=== PATIENT | female | born 1960 | race Caucasian/White ===

== ENCOUNTER 2016-04-28 16:47 | Emergency (ER) | payer OTHER ==
[~2016-04-28] VITALS: Ht 162.6 cm; Wt 73.0 kg
[~2016-04-28 16:47] MED LIST: ACET-1256 PO; ALBUAER19 INH; AMLO-110 PO; CLR10 PO; CYAN100048 PO; ERGO1CAP35 PO; ETAN50IN2 IM; PANT40TA PO; POTA20TA16 PO
[2016-04-28 17:00] VITALS: TEMP 37.1; Ht 162.6 cm; Wt 73.0 kg
[2016-04-28] MEDS ORDERED: VNTHFA/IN INH (17:55)
[2016-04-28] MEDS ORDERED: ERGO500037 PO (17:57)
[2016-04-28] MEDS ORDERED: ETAN25IN2 IM (17:58)
[2016-04-28 18:03] LABS: URINE APPEARANCE CLEAR (CLEAR); URINE BILIRUBIN NEG (NEG); URINE COLOR YELLOW; URINE NITRITE NEG (NEG); URINE SPECIFIC GRAVITY 1.016 (1.000-1.030); UROBILINOGEN NEG (NEG)
[2016-04-28 18:03] LABS: BASO % 0.7 %; BASO ABS # 0.05 K/uL (0-0.2); COMPLETE YES; EOS % 0.9 %; HEMATOCRIT 41.9 % (37-47); IG% 0.3 %; LYMPH % 38.8 %; LYMPH ABS # 2.87 K/uL (1.2-3.4); MEAN CELL VOLUME 82.3 fL (80-100); MEAN CORPUSCULAR HEMOGLOBIN 27.7 pg (25-34); MEAN CORPUSCULAR HGB CONC 33.7 g/dl (32-36); MEAN PLATELET VOLUME 11.4 fL (7.4-10.4); MONO % 4.6 %; NEUT % 54.7 %; PLATELET COUNT 276 K/uL (130-400); RED BLOOD COUNT 5.09 M/uL (4.2-5.4); WHITE BLOOD COUNT 7.39 K/uL (4.8-10.8)
[2016-04-28 18:07] LABS: MANUAL MICROSCOPIC REQUIRED? NO; REVIEW REQ? NO
--- NOTE | 2016-04-28 18:15 | DIAGNOSTIC IMAGING REPORT ---
SINGLE VIEW CHEST CLINICAL HISTORY: Fever. Sepsis. FINDINGS: An AP, portable, upright chest radiograph is compared to study dated 01/07/2016 and correlated with chest CT dated 09/13/2015. The examination is degraded by portable technique, apical lordotic positioning, and patient rotation. The heart is mildly enlarged. The pulmonary vasculature is noncongested. A hiatal hernia is observed. Nonspecific interstitial thickening similar to previous. The lungs and pleural spaces are clear. No pneumothorax is seen. The skeletal structures are osteopenic. Degenerative changes noted throughout the thoracic spine. Calcific tendinopathy is seen in the right shoulder. Cholecystectomy clips are identified in the right upper quadrant. IMPRESSION: Cardiomegaly with no acute cardiopulmonary abnormality. Electronically signed by: Pablo Hamilton M.D. 04/28/2016 6:14 PM Dictated Date/Time: 04/28/2016 6:12 PM
[2016-04-28 18:16] LABS: PROTHROMBIN TIME (PATIENT) 10.7 SECONDS (9.0-12.0)
[2016-04-28 18:21] LABS: ALT/SGPT 18 U/L (12-78); BLOOD UREA NITROGEN 14 mg/dl (7-18); BUN/CREATININE RATIO 21.5 (10-20); CALCIUM 9.7 mg/dl (8.5-10.1); CARBON DIOXIDE 28 mmol/L (21-32); CHLORIDE 108 mmol/L (98-107); CREATININE 0.66 mg/dl (0.60-1.20); GLUCOSE 111 mg/dl (70-99); POTASSIUM 3.7 mmol/L (3.5-5.1); SODIUM 143 mmol/L (136-145)
[2016-04-28 18:26] LABS: ALKALINE PHOSPHATASE 73 U/L (45-117); AST/SGOT 13 U/L (15-37); CKMB/CK RATIO 1.4 (0-3.0)
[2016-04-28 18:57] VITALS: PULSE 69
--- NOTE | 2016-04-28 19:07 | EMERGENCY ROOM VISIT NOTE ---
History Report prepared by Micaela: Kade Benavidez Under the Supervision of: Dr. Jus Davis D.O. First contact with patient: 17:21 Chief Complaint: CHEST PAIN Stated Complaint: CHEST AND BACK PAIN Nursing Triage Summary: Pt c/o pain under right breast that radiates to back Pain started at 0900 +SOB Pt c/o chills History of Present Illness The patient is a 56 year old female who presents to the Emergency Room with complaints of persistent chest pain beginning about 8 hours ago. She locates her pain under her right breast, describes it as a dull pain, and reports it radiates into her back. She notes her pain began while she was sitting this morning. The patient states that movement worsens her pain, and being still and resting helps relieve her symptoms. She admits to having some nausea, chills, and a cough though she has asthma. She denies having shortness of breath. The patient reports having a history of GERD and rheumatoid arthritis. Source of History: patient Onset: about 8 hours ago Position: chest (right) Quality: dull Timing: other (persistent) Modifying Factors (Worsening): movement Modifying Factors (Relieving): rest Associated Symptoms: + chills, + cough, + nausea, No SOB Review of Systems See HPI for pertinent positives & negatives. A total of 10 systems reviewed and were otherwise negative. Past Medical & Surgical Medical Problems: (1) Cholecystectomy (2) Gastroesophageal reflux disease (3) History of asthma (4) Rheumatoid arteritis Family History Hypertension Social History Smoking Status: Never Smoker Alcohol Use: none Drug Use: none Marital Status: single Housing Status: lives alone Current/Historical Medications Scheduled Amlodipine (Norvasc), 5 MG PO AM Cyanocobalamin (Vitamin B-12), 1,000 MCG PO QAM Ergocalciferol (Vitamin D 94911 Unit), 50,000 UNIT PO WK Etanercept (Enbrel), 50 MG IM WK Loratadine (Claritin), 10 MG PO QAM Pantoprazole (Protonix), 40 MG PO QAM Potassium Ext Rel (Klor-Con), 20 MEQ PO QPM Scheduled PRN Acetaminophen (Tylenol), 500 MG PO Q6H PRN for Pain or Fever Albuterol Hfa (Ventolin Hfa), 2 PUFFS INH Q4-6H PRN for Shortness of Breath Allergies Coded Allergies: Doxycycline (Unverified Adverse Reaction, Severe, VOMITING, 04/28/16) Physical Exam Vital Signs Date Time Temp Pulse Resp B/P Pulse Ox O2 Delivery O2 Flow Rate FiO2 04/28/16 18:57 69 18 153/97 Room Air 04/28/16 17:43 Room Air 04/28/16 17:42 71 04/28/16 17:00 37.1 86 18 188/88 98 Physical Exam CONSTITUTIONAL/VITAL SIGNS: Reviewed / noted above. GENERAL: Non-toxic in appearance. INTEGUMENTARY: Warm, dry, and [place]. HEAD: Normocephalic. EYES: without scleral icterus or trauma. ENT/OROPHARYNX: clear and moist. LYMPHADENOPATHY/NECK: Is supple without lymphadenopathy or meningismus. RESPIRATORY: Lungs clear and equal. CARDIOVASCULAR: Regular rate and rhythm. GI/ABDOMEN: Soft and nontender. No organomegaly or pulsatile mass. No rebound or guarding. Normal bowel sounds. EXTREMITIES: Warm and well perfused. BACK: No CVA tenderness. NEUROLOGICAL: Intact without focal deficits. PSYCHIATRIC: normal affect. MUSCULOSKELETAL: Normally developed with good muscle tone. Medical Decision & Procedures ER Provider Diagnostic Interpretation: Radiology results as stated below per my review and radiologist interpretation: SINGLE VIEW CHEST FINDINGS: An AP, portable, upright chest radiograph is compared to study dated 01/07/2016 and correlated with chest CT dated 09/13/2015. The examination is degraded by portable technique, apical lordotic positioning, and patient rotation. The heart is mildly enlarged. The pulmonary vasculature is noncongested. A hiatal hernia is observed. Nonspecific interstitial thickening similar to previous. The lungs and pleural spaces are clear. No pneumothorax is seen. The skeletal structures are osteopenic. Degenerative changes noted throughout the thoracic spine. Calcific tendinopathy is seen in the right shoulder. Cholecystectomy clips are identified in the right upper quadrant. IMPRESSION: Cardiomegaly with no acute cardiopulmonary abnormality. Electronically signed by: Pablo Hamilton M.D. 04/28/2016 6:14 PM Dictated Date/Time: 04/28/2016 6:12 PM Laboratory Results 04/28/16 17:30 Red Blood Count 5.09, Mean Corpuscular Volume 82.3, Mean Corpuscular Hemoglobin 27.7, Mean Corpuscular Hemoglobin Concent 33.7, Mean Platelet Volume 11.4, Neutrophils (%) (Auto) 54.7, Lymphocytes (%) (Auto) 38.8, Monocytes (%) (Auto) 4.6, Eosinophils (%) (Auto) 0.9, Basophils (%) (Auto) 0.7, Neutrophils # (Auto) 4.04, Lymphocytes # (Auto) 2.87, Monocytes # (Auto) 0.34, Eosinophils # (Auto) 0.07, Basophils # (Auto) 0.05 04/28/16 17:30 Test 04/28/16 17:30 04/28/16 17:45 White Blood Count 7.39 K/uL (4.8-10.8) Red Blood Count 5.09 M/uL (4.2-5.4) Hemoglobin 14.1 g/dL (12.0-16.0) Hematocrit 41.9 % (37-47) Mean Corpuscular Volume 82.3 fL (80-100) Mean Corpuscular Hemoglobin 27.7 pg (25-34) Mean Corpuscular Hemoglobin Concent 33.7 g/dl (32-36) Platelet Count 276 K/uL (130-400) Mean Platelet Volume 11.4 fL (7.4-10.4) Neutrophils (%) (Auto) 54.7 % Lymphocytes (%) (Auto) 38.8 % Monocytes (%) (Auto) 4.6 % Eosinophils (%) (Auto) 0.9 % Basophils (%) (Auto) 0.7 % Neutrophils # (Auto) 4.04 K/uL (1.4-6.5) Lymphocytes # (Auto) 2.87 K/uL (1.2-3.4) Monocytes # (Auto) 0.34 K/uL (0.11-0.59) Eosinophils # (Auto) 0.07 K/uL (0-0.5) Basophils # (Auto) 0.05 K/uL (0-0.2) RDW Standard Deviation 41.5 fL (36.4-46.3) RDW Coefficient of Variation 13.7 % (11.5-14.5) Immature Granulocyte % (Auto) 0.3 % Immature Granulocyte # (Auto) 0.02 K/uL (0.00-0.02) Prothrombin Time 10.7 SECONDS (9.0-12.0) Prothromb Time International Ratio 1.0 (0.9-1.1) Activated Partial Thromboplast Time 25.9 SECONDS (21.0-31.0) Partial Thromboplastin Ratio 1.0 D-Dimer 210 ug/L FEU (0-500) Anion Gap 7.0 mmol/L (3-11) Est Creatinine Clear Calc Drug Dose 91.0 ml/min Estimated GFR () 112.9 Estimated GFR (Non- 97.4 BUN/Creatinine Ratio 21.5 (10-20) Calcium Level 9.7 mg/dl (8.5-10.1) Total Bilirubin 0.5 mg/dl (0.2-1) Direct Bilirubin 0.1 mg/dl (0-0.2) Aspartate Amino Transf (AST/SGOT) 13 U/L (15-37) Alanine Aminotransferase (ALT/SGPT) 18 U/L (12-78) Alkaline Phosphatase 73 U/L (45-117) Total Creatine Kinase 106 U/L (26-192) Creatine Kinase MB 1.5 ng/ml (0.5-3.6) Creatine Kinase MB Ratio 1.4 (0-3.0) Troponin I < 0.015 ng/ml (0-0.045) Total Protein 8.0 gm/dl (6.4-8.2) Albumin 4.4 gm/dl (3.4-5.0) Lipase 138 U/L (73-393) Urine Color YELLOW Urine Appearance CLEAR (CLEAR) Urine pH 7.0 (4.5-7.5) Urine Specific [place] 1.016 (1.000-1.030) Urine Protein NEG (NEG) Urine Glucose (UA) NEG (NEG) Urine Ketones NEG (NEG) Urine Occult Blood NEG (NEG) Urine Nitrite NEG (NEG) Urine Bilirubin NEG (NEG) Urine Urobilinogen NEG (NEG) Urine Leukocyte Esterase NEG (NEG) Laboratory results as stated above per my review. ECG Indication: chest pain Rate (beats per minute): 75 Rhythm: normal sinus Findings: no acute ischemic change, no ectopy ED Course 1720: Previous medical records were reviewed. The patient was evaluated in room A3. A complete history and physical examination was performed. 0: On reevaluation, the patient is doing well. I discussed the results and findings with the patient. She verbalized agreement of the treatment plan. The patient was discharged home. Medical Decision the differential was considered includes acute myocardial infarction, acute coronary syndrome, myocarditis, pericarditis, pericardial effusions /tamponade, esophageal perforation, thoracic aortic dissection, pulmonary embolism, pneumonia, pneumothorax, pancreatitis, shingles, acute cholecystitis, perforated abdominal viscus. This is a 56-year-old female who presents to the ED with a chief complaint of a dull right-sided chest pain that started around 9 AM today. Dates that she has had a slight cough recently and movement makes her pain worse. She denies any shortness of breath, fevers, lightheadedness, dizziness or palpitations. She denies any radiation of her pain. Her initial blood pressure was 188/88. Normal exam. EKG shows a normal sinus rhythm at a rate of 75. Chest x-ray was negative for acute disease. CBC is normal. D-dimer is negative. Complete metabolic panel was normal. Troponin is negative. Urine did not show infection. The patient was told the results. She is felt to be stable for discharge. Impression Primary Impression: Right-sided chest pain Scribe Attestation The scribe's documentation has been prepared under my direction and personally reviewed by me in its entirety. I confirm that the note above accurately reflects all work, treatment, procedures, and medical decision making performed by me. Departure Information Dispostion Home / Self-Care Referrals No Doctor, Assigned (PCP) Patient Instructions Chest Pain - [facility], [facility] Additional Instructions Follow-up with your doctor for further care and evaluation in 1-2 days. Return to the emergency department for worsening or new symptoms or any concerns. You have been examined and treated today on an emergency basis only. This is not a substitute for, or an effort to provide, complete comprehensive medical care. It is impossible to recognize and treat all injuries or illnesses in a single emergency department visit. It is therefore important that you follow up closely with your doctor. Call as soon as possible for an appointment.
[2016-04-28 19:55] VITALS: BP 143/88; O2SAT 97
== END 2016-04-28 19:55 | disposition home or self-care (01) ==
LOC: C.EDB 16:48 → C.EDA 19:55
DX: R07.9 Chest pain, unspecified (principal); Z90.49 Acquired absence of other specified parts of digestive tract; K21.9 Gastro-esophageal reflux disease without esophagitis

== ENCOUNTER → 2016-06-13 | Outpatient (CLI) | payer OTHER ==
[~2016-06-13] MED LIST changes: -ALBUAER19 INH; +AMLO10TA2 PO; +CETI10TA84 PO; -ERGO1CAP35 PO; +ERGO500037 PO; +ETAN25IN2 IM; -ETAN50IN2 IM; +FAMO20TA11 PO; +NRV/5 PO; +VNTHFA/IN INH
== END | disposition home or self-care (01) ==
LOC: C.PAPS 08:57
PROVIDERS: ATTEND Physician Assistant
DX: Z12.4 Encounter for screening for malignant neoplasm of cervix (principal)

== ENCOUNTER → 2016-06-28 | Outpatient (CLI) | payer OTHER ==
[2016-06-28 17:29] LABS: HEMATOCRIT 40.8 % (37-47); MEAN CELL VOLUME 85.2 fL (80-100); MEAN CORPUSCULAR HEMOGLOBIN 26.9 pg (25-34); MEAN CORPUSCULAR HGB CONC 31.6 g/dl (32-36); MEAN PLATELET VOLUME 11.9 fL (7.4-10.4); PLATELET COUNT 250 K/uL (130-400); RED BLOOD COUNT 4.79 M/uL (4.2-5.4); WHITE BLOOD COUNT 6.64 K/uL (4.8-10.8)
[2016-06-28 17:51] LABS: BASO % 0.8 %; BASO ABS # 0.05 K/uL (0-0.2); COMPLETE YES; EOS % 3.3 %; IG% 0.3 %; LYMPH % 56.2 %; LYMPH ABS # 3.73 K/uL (1.2-3.4); MONO % 6.9 %; NEUT % 32.5 %
[2016-06-28 17:57] LABS: BLOOD UREA NITROGEN 19 mg/dl (7-18); BUN/CREATININE RATIO 25.1 (10-20); CALCIUM 9.2 mg/dl (8.5-10.1); CARBON DIOXIDE 29 mmol/L (21-32); CHLORIDE 109 mmol/L (98-107); CREATININE 0.77 mg/dl (0.60-1.20); GLUCOSE 98 mg/dl (70-99); POTASSIUM 3.6 mmol/L (3.5-5.1); SODIUM 145 mmol/L (136-145)
[2016-06-28 19:29] LABS: LYME DISEASE AB IGG NEG (NEG); LYME DISEASE AB IGM NEG (NEG)
[2016-06-30 16:42] LABS: EBV EARLY ANTIGEN AB <0.91 INDEX; EPSTEIN BARR VIR CAPSID IGG 4.96 INDEX
== END | disposition home or self-care (01) ==
LOC: C.LABPBG 15:36
PROVIDERS: ATTEND Physician Assistant
DX: R53.83 Other fatigue (principal); R42 Dizziness and giddiness; S40.269A Insect bite (nonvenomous) of unspecified shoulder, initial encounter; W57.XXXA Bitten or stung by nonvenomous insect and other nonvenomous arthropods, initial encounter

== ENCOUNTER 2016-07-09 19:45 | Emergency (ER) | payer OTHER ==
[~2016-07-09] VITALS: Ht 162.6 cm; Wt 72.6 kg
[~2016-07-09 19:45] MED LIST changes: -AMLO10TA2 PO; -CETI10TA84 PO; -FAMO20TA11 PO; -NRV/5 PO
[2016-07-09 19:49] VITALS: TEMP 37.2; Ht 162.6 cm; Wt 72.6 kg
[2016-07-09] MEDS ORDERED: SODIUM CHLORIDE 0.9% 1000ML 1,000 ML IV STA ×2 (19:55→20:00)
[2016-07-09] MEDS ORDERED: ONDANSETRON 8 MG/54 ML D5W IV STA (19:59)
[2016-07-09] MEDS ORDERED: AMLO10TA2 PO (20:25)
[2016-07-09] MEDS ORDERED: CETI10TA84 PO (20:27)
[2016-07-09 20:38] LABS: BASO % 0.5 %; BASO ABS # 0.03 K/uL (0-0.2); COMPLETE YES; EOS % 3.1 %; HEMATOCRIT 38.6 % (37-47); LYMPH ABS # 2.83 K/uL (1.2-3.4); MEAN CELL VOLUME 84.5 fL (80-100); MEAN CORPUSCULAR HGB CONC 33.2 g/dl (32-36); MONO % 9.2 %; NEUT % 38.2 %; PLATELET COUNT 226 K/uL (130-400); RED BLOOD COUNT 4.57 M/uL (4.2-5.4); WHITE BLOOD COUNT 5.77 K/uL (4.8-10.8)
[2016-07-09 21:01] LABS: ALKALINE PHOSPHATASE 69 U/L (45-117); ALT/SGPT 22 U/L (12-78); BLOOD UREA NITROGEN 13 mg/dl (7-18); BUN/CREATININE RATIO 20.2 (10-20); CARBON DIOXIDE 25 mmol/L (21-32); CHLORIDE 111 mmol/L (98-107); CREATININE 0.66 mg/dl (0.60-1.20); GLUCOSE 96 mg/dl (70-99); SODIUM 149 mmol/L (136-145)
[2016-07-09 21:31] LABS: POTASSIUM 3.1 mmol/L (3.5-5.1)
[2016-07-09 21:36] LABS: URINE APPEARANCE CLEAR (CLEAR); URINE BILIRUBIN NEG (NEG); URINE COLOR YELLOW; URINE EPITHELIAL CELL AUTO 0-5 /lpf (0-5); URINE NITRITE NEG (NEG); URINE PH 6.5 (4.5-7.5); URINE SPECIFIC GRAVITY 1.011 (1.000-1.030); UROBILINOGEN NEG (NEG); ZZUR CULT IF INDIC CLEAN CATCH NO
[2016-07-09 21:36] LABS: MAGNESIUM 1.9 mg/dl (1.8-2.4)
[2016-07-09 21:38] LABS: MANUAL MICROSCOPIC REQUIRED? NO; REVIEW REQ? NO
[2016-07-09] MEDS ORDERED: OPTIRAY 320 IV PRN (22:00)
--- NOTE | 2016-07-09 22:10 | DIAGNOSTIC IMAGING REPORT ---
CT SCAN OF THE ABDOMEN AND PELVIS WITH IV CONTRAST CLINICAL HISTORY: Generalized abdominal pain. Diarrhea. COMPARISON STUDY: Abdominal CT dated 10/29/2015. TECHNIQUE: Following the IV administration of 115 cc of Optiray 320, CT scan of the abdomen and pelvis is performed from the lung bases to the proximal femora. Images are reviewed in the axial, sagittal, and coronal planes. IV contrast was administered without complication. Automated dose control exposure was utilized. CT DOSE: 357.14 mGy.cm FINDINGS: Lung bases: The heart is top normal in size and without pericardial effusion. The lung bases are clear noting dependent atelectasis. Liver: The contrast-enhanced liver is normal in size, contour, and attenuation. There is minimal central intrahepatic biliary ductal dilatation. The hepatic veins and portal veins are patent. A portovenous shunt is incidentally noted in the subcapsular aspect of segment VIII on image #43. Gallbladder: Surgically absent noting clips in the gallbladder fossa. Spleen: Normal in size and attenuation. 11 mm low-attenuation lesion in the spleen seen on image #87 is unchanged and of doubtful significance Pancreas: Unremarkable. Adrenal glands: Unremarkable. Kidneys: The contrast enhanced kidneys are normal in size and without hydronephrosis. The kidneys enhance symmetrically. A small nonobstructing left calculus is noted. Abdominal vasculature: The abdominal aorta is normal in course and caliber noting mild to moderate atherosclerotic calcification. Stomach and bowel: There is a moderate to large hiatal hernia, with over half the stomach located in the thoracic cavity. The duodenum is normal in configuration. No bowel obstruction is seen. There are scattered colonic diverticula without CT evidence of acute diverticulitis. The appendix is well-visualized and normal. Peritoneum: There is no intraperitoneal free air or abdominal ascites. There is a tiny fat-containing umbilical hernia. Lymphadenopathy: None. Pelvic viscera: The bladder, uterus, and adnexa are normal as visualized. Skeletal structures: The skeletal structures are osteopenic. There is a left-sided pars defect at L5. Mild lumbar sacral spondylosis is observed. No lytic or blastic lesions are seen. IMPRESSION: 1. There are no acute infectious or inflammatory findings in the abdomen or pelvis. 2. Moderate to large hiatal hernia. 3. Tiny nonobstructing left renal calculus. 4. Additional findings as above. Electronically signed by: Pablo Hamilton M.D. 07/09/2016 10:08 PM Dictated Date/Time: 07/09/2016 10:00 PM
[2016-07-09 22:14] LABS: CALCIUM 9.5 mg/dl (8.5-10.1)
[2016-07-09] MEDS ORDERED: POTASSIUM CHLORIDE 10 MEQ TABCR PO STA (22:40)
[2016-07-09] MEDS ORDERED: ONDANSETRON HOME PACK 4MG OD TAB PO ONE (22:45)
[2016-07-09 23:09] VITALS: BP 147/82; PULSE 68; O2SAT 97
--- NOTE | 2016-07-10 01:33 | EMERGENCY ROOM VISIT NOTE ---
History Report prepared by Micaela: Tania Squires Under the Supervision of: Dr. Sebas Sanz M.D. First contact with patient: 19:52 Chief Complaint: ABDOMINAL PAIN Stated Complaint: STOMACH PAIN DIARRHEA History of Present Illness The patient is a 56 year old female who presents to the Emergency Room with complaints of worsening lower abdominal pain for the past 2 days. The patient has not been feeling well for the past couple of weeks. Last week she saw her PCP and was placed on amoxicillin for a sinus infection. Her PCP called her the next day and told her that she had mono. The patient states that she was feeling better for a few days after starting the antibiotics. Two days ago she developed diarrhea and abdominal pain. Her stool is watery and she reports some blood-streaked mucus after multiple episodes of diarrhea. She has been feeling weak and nauseated. She rates her pain as a 4/10 in severity. Pt denies LOC, fevers, chills, diaphoresis, visual changes, neck pain, chest pain, breathing difficulties, vomiting, back pain, melena, urinary symptoms, numbness, lymphadenopathy, rash, or other complaints. Source of History: patient Onset: 2 days ago Position: abdomen (lower) Symptom Intensity: 4/10 Timing: worsening Associated Symptoms: + nausea, + weakness Review of Systems See HPI for pertinent positives and negatives. A total of ten systems were reviewed and were otherwise negative. Past Medical & Surgical Medical Problems: (1) Cholecystectomy (2) Gastroesophageal reflux disease (3) History of asthma (4) Rheumatoid arteritis Family History Hypertension Social History Smoking Status: Never Smoker Alcohol Use: none Drug Use: none Marital Status: single Housing Status: lives alone Current/Historical Medications Scheduled Amlodipine Besylate (Norvasc), 10 MG PO DAILY Cetirizine (Zyrtec), 10 MG PO DAILY Cyanocobalamin (Vitamin B-12), 1,000 MCG PO QAM Ergocalciferol (Vitamin D 05884 Unit), 50,000 UNIT PO WK Etanercept (Enbrel), 50 MG IM WK Pantoprazole (Protonix), 40 MG PO QAM Potassium Ext Rel (Klor-Con), 20 MEQ PO QPM Scheduled PRN Acetaminophen (Tylenol), 500 MG PO Q6H PRN for Pain or Fever Albuterol Hfa (Ventolin Hfa), 2 PUFFS INH Q4-6H PRN for Shortness of Breath Allergies Coded Allergies: Doxycycline (Unverified Adverse Reaction, Severe, VOMITING, 04/28/16) Physical Exam Vital Signs Date Time Temp Pulse Resp B/P (MAP) Pulse Ox O2 Delivery O2 Flow Rate FiO2 07/09/16 23:09 68 18 147/82 97 07/09/16 22:04 74 18 133/77 98 Room Air 07/09/16 20:39 61 07/09/16 19:49 37.2 79 18 164/93 99 Room Air Physical Exam GENERAL: Awake, alert, uncomfortable-appearing, in no distress HENT: Normocephalic, atraumatic. Oropharynx unremarkable. EYES: Normal conjunctiva. Sclera non-icteric. NECK: Supple. No nuchal rigidity. FROM. No JVD. RESPIRATORY: Clear to auscultation. CARDIAC: Regular rate, normal rhythm. Extremities warm and well perfused. Pulses equal. ABDOMEN: Soft, non-distended. Mild diffuse abdominal pain. No rebound or guarding. No masses. RECTAL: Deferred. MUSCULOSKELETAL: Chest examination reveals no tenderness. The back is symmetrical on inspection without obvious abnormality. There is no CVA tenderness to palpation. No joint edema. LOWER EXTREMITIES: Calves are equal size bilaterally and non-tender. No edema. No discoloration. NEURO: Normal sensorium. No sensory or motor deficits noted. SKIN: No rash or jaundice noted. Medical Decision & Procedures ER Provider Diagnostic Interpretation: Radiology results as stated below per my review and radiologist interpretation: CT SCAN OF THE ABDOMEN AND PELVIS WITH IV CONTRAST CLINICAL HISTORY: Generalized abdominal pain. Diarrhea. COMPARISON STUDY: Abdominal CT dated 10/29/2015. TECHNIQUE: Following the IV administration of 115 cc of Optiray 320, CT scan of the abdomen and pelvis is performed from the lung bases to the proximal femora. Images are reviewed in the axial, sagittal, and coronal planes. IV contrast was administered without complication. Automated dose control exposure was utilized. CT DOSE: 357.14 mGy.cm FINDINGS: Lung bases: The heart is top normal in size and without pericardial effusion. The lung bases are clear noting dependent atelectasis. Liver: The contrast-enhanced liver is normal in size, contour, and attenuation. There is minimal central intrahepatic biliary ductal dilatation. The hepatic veins and portal veins are patent. A portovenous shunt is incidentally noted in the subcapsular aspect of segment VIII on image #43. Gallbladder: Surgically absent noting clips in the gallbladder fossa. Spleen: Normal in size and attenuation. 11 mm low-attenuation lesion in the spleen seen on image #87 is unchanged and of doubtful significance Pancreas: Unremarkable. Adrenal glands: Unremarkable. Kidneys: The contrast enhanced kidneys are normal in size and without hydronephrosis. The kidneys enhance symmetrically. A small nonobstructing left calculus is noted. Abdominal vasculature: The abdominal aorta is normal in course and caliber noting mild to moderate atherosclerotic calcification. Stomach and bowel: There is a moderate to large hiatal hernia, with over half the stomach located in the thoracic cavity. The duodenum is normal in configuration. No bowel obstruction is seen. There are scattered colonic diverticula without CT evidence of acute diverticulitis. The appendix is well-visualized and normal. Peritoneum: There is no intraperitoneal free air or abdominal ascites. There is a tiny fat-containing umbilical hernia. Lymphadenopathy: None. Pelvic viscera: The bladder, uterus, and adnexa are normal as visualized. Skeletal structures: The skeletal structures are osteopenic. There is a left-sided pars defect at L5. Mild lumbar sacral spondylosis is observed. No lytic or blastic lesions are seen. IMPRESSION: 1. There are no acute infectious or inflammatory findings in the abdomen or pelvis. 2. Moderate to large hiatal hernia. 3. Tiny nonobstructing left renal calculus. 4. Additional findings as above. Electronically signed by: Pablo Hamilton M.D. 07/09/2016 10:08 PM Dictated Date/Time: 07/09/2016 10:00 PM Laboratory Results 07/09/16 20:18 Red Blood Count 4.57, Mean Corpuscular Volume 84.5, Mean Corpuscular Hemoglobin 28.0, Mean Corpuscular Hemoglobin Concent 33.2, Mean Platelet Volume 12.0, Neutrophils (%) (Auto) 38.2, Lymphocytes (%) (Auto) 49.0, Monocytes (%) (Auto) 9.2, Eosinophils (%) (Auto) 3.1, Basophils (%) (Auto) 0.5, Neutrophils # (Auto) 2.20, Lymphocytes # (Auto) 2.83, Monocytes # (Auto) 0.53, Eosinophils # (Auto) 0.18, Basophils # (Auto) 0.03 07/09/16 20:18 07/09/16 21:10 Test 07/09/16 20:18 07/09/16 21:10 07/09/16 21:20 White Blood Count 5.77 K/uL (4.8-10.8) Red Blood Count 4.57 M/uL (4.2-5.4) Hemoglobin 12.8 g/dL (12.0-16.0) Hematocrit 38.6 % (37-47) Mean Corpuscular Volume 84.5 fL (80-100) Mean Corpuscular Hemoglobin 28.0 pg (25-34) Mean Corpuscular Hemoglobin Concent 33.2 g/dl (32-36) Platelet Count 226 K/uL (130-400) Mean Platelet Volume 12.0 fL (7.4-10.4) Neutrophils (%) (Auto) 38.2 % Lymphocytes (%) (Auto) 49.0 % Monocytes (%) (Auto) 9.2 % Eosinophils (%) (Auto) 3.1 % Basophils (%) (Auto) 0.5 % Neutrophils # (Auto) 2.20 K/uL (1.4-6.5) Lymphocytes # (Auto) 2.83 K/uL (1.2-3.4) Monocytes # (Auto) 0.53 K/uL (0.11-0.59) Eosinophils # (Auto) 0.18 K/uL (0-0.5) Basophils # (Auto) 0.03 K/uL (0-0.2) RDW Standard Deviation 42.6 fL (36.4-46.3) RDW Coefficient of Variation 13.8 % (11.5-14.5) Immature Granulocyte % (Auto) 0.0 % Immature Granulocyte # (Auto) 0.00 K/uL (0.00-0.02) Anion Gap 13.0 mmol/L (3-11) Est Creatinine Clear Calc Drug Dose 90.8 ml/min Estimated GFR () 112.9 Estimated GFR (Non- 97.4 BUN/Creatinine Ratio 20.2 (10-20) Calcium Level 9.5 mg/dl (8.5-10.1) Total Bilirubin 0.7 mg/dl (0.2-1) Alanine Aminotransferase (ALT/SGPT) 22 U/L (12-78) Alkaline Phosphatase 69 U/L (45-117) Total Protein 7.6 gm/dl (6.4-8.2) Albumin 4.1 gm/dl (3.4-5.0) Lipase 188 U/L (73-393) Magnesium Level 1.9 mg/dl (1.8-2.4) Direct Bilirubin 0.2 mg/dl (0-0.2) Aspartate Amino Transf (AST/SGOT) 16 U/L (15-37) Urine Color YELLOW Urine Appearance CLEAR (CLEAR) Urine pH 6.5 (4.5-7.5) Urine Specific [place] 1.011 (1.000-1.030) Urine Protein NEG (NEG) Urine Glucose (UA) NEG (NEG) Urine Ketones NEG (NEG) Urine Occult Blood NEG (NEG) Urine Nitrite NEG (NEG) Urine Bilirubin NEG (NEG) Urine Urobilinogen NEG (NEG) Urine Leukocyte Esterase TRACE (NEG) Urine WBC (Auto) 1-5 /hpf (0-5) Urine RBC (Auto) 0-4 /hpf (0-4) Urine Hyaline Casts (Auto) 0 /lpf (0-5) Urine Epithelial Cells (Auto) 0-5 /lpf (0-5) Urine Bacteria (Auto) NEG (NEG) Laboratory results reviewed by me. Medications Administered Medications (Trade) Dose Ordered Sig/Clarice Route Start Time Stop Time Status Last Admin Dose Admin Sodium Chloride 1,000 ml @ 999 mls/hr Q1H1M STAT IV 07/09/16 19:55 07/09/16 20:55 DC 07/09/16 20:34 999 MLS/HR Ondansetron HCl (Zofran 8mg Iv) 8 mg NOW STAT IV 07/09/16 19:59 07/09/16 20:00 DC 07/09/16 20:34 8 MG Sodium Chloride 1,000 ml @ 200 mls/hr Q5H STAT IV 07/09/16 20:00 07/09/16 23:18 DC 07/09/16 20:00 200 MLS/HR Potassium Chloride (Klor-Con M10) 40 meq NOW STAT PO 07/09/16 22:40 07/09/16 22:42 DC 07/09/16 22:57 40 MEQ Ondansetron HCl (ZOFRAN ODT 4MG Home Pack) 1 homepack UD ONCE PO 07/09/16 22:45 07/09/16 22:46 DC 07/09/16 22:[address] [facility] ED Course 1951: The patient was evaluated in room C2B. A complete history and physical exam was performed. 1954: NSS 1000 ml @ 999 mls/hr IV 1958: Zofran 8 mg IV 1999: NSS 1000 ml @ 200 mls/hr IV 2236: I reassessed the patient at this time. She is feeling better and resting comfortably. I discussed the results and treatment plan with the patient. I answered all pertaining questions that she had. She expressed understanding and verbalized agreement. The patient will be discharged home. 2239: Potassium Chloride 40 meq PO 2244: Zofran 4 mg PO 1 [facility] Medical Decision Medication Reconciliation: I attest that I have personally reviewed the patient' s current medication list Blood pressure screening: Patient was found to have an elevated blood pressure and was referred to their primary doctor for recheck and further treatment. Triage Nursing notes reviewed. The patient's presentation and history were concerning for abdominal pain and diarrhea. Etiologies such as infectious diarrhea, C. difficile colitis, antibiotic intolerance, appendicitis, diverticulitis, obstruction, inflammatory bowel disease, renal colic, PUD, biliary pathology, pancreatitis, mesenteric ischemia , aortic pathology, infections, genitourinary, UTI, perforated viscus, as well as others were entertained. The patient was evaluated. She was hydrated with normal saline. She was given IV Zofran for symptoms. She declined analgesia. Blood work and imaging were ordered. The patient had unremarkable CBC and chemistry panel except for mild hypokalemia. She was given oral potassium. The patient states she does take potassium at home. CT imaging was unremarkable. The patient was unable to write a stool sample. Urinalysis was unremarkable. I suspect the patient has a diarrheal illness. She is doing quite well at this time. She was reassured and felt much better after Zofran and hydration. She will continue conservative management. A Zofran home pack was given for prescription management. She will follow-up with her primary physician for stool analysis. There is some mild risk for C. difficile however there is no colitis on CT imaging. I gave my usual and customary discussion regarding this issue. She worsens in any way she will come back. By the evaluation outlined above other emergent etiologies such as those listed in the differential, as well as others, were deemed relatively unlikely. The patient was educated about the findings as listed above. All questions were answered and the patient was pleased with the treatment. Return instructions were outlined and the patient was discharged in stable condition. The patient was referred to her PCP this week for follow-up for a recheck of the current condition. Impression Primary Impression: Diarrhea Additional Impressions: Abdominal pain Hypokalemia Scribe Attestation The scribe's documentation has been prepared under my direction and personally reviewed by me in its entirety. I confirm that the note above accurately reflects all work, treatment, procedures, and medical decision making performed by me. Departure Information Dispostion Home / Self-Care Referrals Amairani Simmons DO (PCP) Forms Call Back Authorization, HOME CARE DOCUMENTATION FORM, IMPORTANT VISIT INFORMATION Patient Instructions My [facility] Additional Instructions ABDOMINAL PAIN INSTRUCTIONS: Start a probiotic. Ibuprofen(Motrin, Advil) may be used for fever or pain. Use 600mg every six hours as needed. Take with food. Avoid using more than 2400mg in a 24 hour period. Do not use 2400mg per day for more than three consecutive days without physician direction. Prolonged inappropriate use can lead to stomach upset or ulcers. (AND/OR) Acetaminophen(Tylenol) may be used for fever or pain. Use 1000mg every six hours as needed. Avoid using more than 4000mg in a 24 hour period. Zofran 4 mg oral dissolving tablets: take one tablet and allow it to melt in your mouth every 4 hours as needed for nausea. Rest and drink plenty of fluids as tolerated. Slow sips of water or sports drinks are recommended instead of large amounts all at once. Continue current medications. Once your stomach is settled start with a clear liquid diet (jello, soup broth, etc.) and then advance as tolerated. You should avoid full, heavy meals for about 24 hrs from the time your symptoms resolved. Return to the ER immediately for worsening or persistent abdominal pain, vomiting, fevers, chest pains, difficulty breathing, black or bloody stools, worsening of your condition, or as needed. Follow up with your primary physician in 2-3 days for a recheck of your current condition and diarrhea. Problem Qualifiers Primary Impression: Diarrhea Diarrhea type: unspecified type Qualified Codes: R19.7 - Diarrhea, unspecified Additional Impressions: Abdominal pain Abdominal location: generalized Qualified Codes: R10.84 - Generalized abdominal pain
== END 2016-07-09 23:11 | disposition home or self-care (01) ==
LOC: C.EDB 19:46 → C.EDC 23:11
DX: R19.7 Diarrhea, unspecified (principal); R10.84 Generalized abdominal pain; E87.6 Hypokalemia; K21.9 Gastro-esophageal reflux disease without esophagitis; J45.909 Unspecified asthma, uncomplicated; Z82.49 Family history of ischemic heart disease and other diseases of the circulatory system; Z79.899 Other long term (current) drug therapy

== ENCOUNTER → 2016-09-27 | Outpatient (CLI) | payer OTHER ==
[~2016-09-27] MED LIST changes: -AMLO-110 PO; +AMLO10TA2 PO; +CETI10TA84 PO; -CLR10 PO; +FAMO20TA11 PO; +NRV/5 PO
[2016-09-27 17:42] LABS: BASO % 0.8 %; BASO ABS # 0.05 K/uL (0-0.2); COMPLETE YES; EOS % 3.6 %; HEMATOCRIT 37.6 % (37-47); IG% 0.3 %; LYMPH % 44.9 %; LYMPH ABS # 2.84 K/uL (1.2-3.4); MEAN CORPUSCULAR HEMOGLOBIN 27.9 pg (25-34); MEAN CORPUSCULAR HGB CONC 32.4 g/dl (32-36); MEAN PLATELET VOLUME 11.6 fL (7.4-10.4); MONO % 9.5 %; NEUT % 40.9 %; PLATELET COUNT 238 K/uL (130-400); RED BLOOD COUNT 4.37 M/uL (4.2-5.4); WHITE BLOOD COUNT 6.33 K/uL (4.8-10.8)
[2016-09-27 18:08] LABS: AST/SGOT 14 U/L (15-37); C-REACTIVE PROTEIN < 0.29 mg/dl (0-0.29)
[2016-09-27 18:18] LABS: ALT/SGPT 21 U/L (12-78); THYROID STIMULATING HORMONE 0.668 uIu/ml (0.300-4.500)
[2016-09-27 18:33] LABS: CHOLESTEROL/HDL RATIO 3.3
--- NOTE | 2016-09-27 18:59 | DIAGNOSTIC IMAGING REPORT ---
CT OF THE CHEST WITHOUT IV CONTRAST CLINICAL HISTORY: Ascending aortic dilatation. COMPARISON STUDY: Chest CT September 13, 2015. CT DOSE: 267.64 mGycm TECHNIQUE: Axial images of the chest were obtained without IV contrast. Images were reviewed in the axial, sagittal, and coronal planes. IV contrast was not administered for this examination. A dose lowering technique was utilized adhering to the principles of ALARA. FINDINGS: No enlarged axillary, mediastinal or hilar lymph nodes are present. A moderate sized hiatal hernia is unchanged. Mild cardiomegaly is unchanged. There is no pericardial effusion. Mild dilatation of the ascending aorta which measures 4 cm at the level the main pulmonary artery is unchanged and CT of September 13, 2015. There is no pneumothorax or pleural effusion. There is no consolidation to suggest pneumonia. A few left upper lobe nodules measuring up to 3 mm are unchanged since CT of April 09, 2015. These are benign given stability. Bony thorax is unremarkable. Gallbladder surgically absent. A 1 cm splenic hypodense lesion has decreased in size from earlier studies. This is benign. A 3 mm left renal calculus is present. IMPRESSION: 1. No change in mild dilatation of the ascending aorta, which measures 4 cm the level of the main pulmonary artery, since CT of September 13, 2015. 2. No acute intrathoracic findings. 3. No change in a few tiny left upper lobe nodules which are benign given stability. Electronically signed by: Arian Walters M.D. 09/27/2016 6:58 PM Dictated Date/Time: 09/27/2016 4:56 PM
== END | disposition home or self-care (01) ==
LOC: C.CTS 16:26
PROVIDERS: ATTEND Family Medicine
DX: E04.2 Nontoxic multinodular goiter (principal); I10 Essential (primary) hypertension; E55.9 Vitamin D deficiency, unspecified; M81.0 Age-related osteoporosis without current pathological fracture; E89.0 Postprocedural hypothyroidism; Z23 Encounter for immunization; Z51.81 Encounter for therapeutic drug level monitoring; M06.09 Rheumatoid arthritis without rheumatoid factor, multiple sites; I77.810 Thoracic aortic ectasia; Z79.899 Other long term (current) drug therapy

== ENCOUNTER 2016-10-04 04:43 | Emergency (ER) | payer OTHER ==
[~2016-10-04] VITALS: Ht 167.6 cm; Wt 73.4 kg
[~2016-10-04 04:43] MED LIST changes: -FAMO20TA11 PO; -NRV/5 PO
[2016-10-04 04:49] VITALS: Ht 167.6 cm; Wt 73.4 kg
[2016-10-04] MEDS ORDERED: ASPIRIN 81 MG CHEW PO STA (05:22)
[2016-10-04] MEDS ORDERED: ONDANSETRON INJ 2 MG/ML 2 ML VIAL IV STA (05:27)
[2016-10-04] MEDS ORDERED: SODIUM CHLORIDE 0.9% 250ML 250 ML IV STA (05:27)
[2016-10-04] MEDS ORDERED: SODIUM CHLORIDE 0.9% 1000ML 1,000 ML IV STA (05:27)
[2016-10-04] MEDS ORDERED: HYDROmorphone INJ 0.5 MG/0.5 ML SYR IV STA (05:27)
[2016-10-04 05:35] LABS: BASO % 0.4 %; BASO ABS # 0.03 K/uL (0-0.2); COMPLETE YES; EOS % 1.3 %; HEMATOCRIT 39.5 % (37-47); IG% 0.3 %; LYMPH % 21.7 %; LYMPH ABS # 1.69 K/uL (1.2-3.4); MEAN CELL VOLUME 84.9 fL (80-100); MEAN CORPUSCULAR HEMOGLOBIN 27.3 pg (25-34); MEAN CORPUSCULAR HGB CONC 32.2 g/dl (32-36); MEAN PLATELET VOLUME 11.3 fL (7.4-10.4); MONO % 5.1 %; NEUT % 71.2 %; PLATELET COUNT 242 K/uL (130-400); RED BLOOD COUNT 4.65 M/uL (4.2-5.4)
[2016-10-04 05:50] LABS: ALT/SGPT 22 U/L (12-78); AST/SGOT 14 U/L (15-37); BLOOD UREA NITROGEN 19 mg/dl (7-18); BUN/CREATININE RATIO 23.6 (10-20); CALCIUM 9.4 mg/dl (8.5-10.1); CARBON DIOXIDE 28 mmol/L (21-32); CHLORIDE 109 mmol/L (98-107); CREATININE 0.79 mg/dl (0.60-1.20); GLUCOSE 124 mg/dl (70-99); POTASSIUM 3.7 mmol/L (3.5-5.1); SODIUM 143 mmol/L (136-145)
[2016-10-04 05:55] LABS: ALKALINE PHOSPHATASE 87 U/L (45-117); CKMB/CK RATIO 1.3 (0-3.0)
[2016-10-04] MEDS ORDERED: FAMOTIDINE 20 MG TAB PO ONE (06:00)
[2016-10-04] MEDS ORDERED: NRV/5 PO (06:06)
[2016-10-04] MEDS ORDERED: FAMO20TA11 PO (06:49)
--- NOTE | 2016-10-04 06:55 | EMERGENCY ROOM VISIT NOTE ---
History Report prepared by Micaela: Dylan Bhandari Under the Supervision of: Dr. Anita Santana M.D. First contact with patient: 04:52 Chief Complaint: CHEST PAIN Stated Complaint: CHEST HURTING,DRY HEAVES Nursing Triage Summary: c/o reflux, chest pain, trouble taking deep breath and nausea since 0000. hx htn History of Present Illness The patient is a 56 year old female who presents to the Emergency Room with complaints of persistent "burning" chest pain beginning a few hours ago. The patient also complains of nausea, SOB, coughing, and dry heaving. She states that her pain began a few hours after eating a club sandwich with tabor and slovenian fries from [employer]. She has a history of GERD, and states that her pain feels similar to her pain associated with GERD, only worse. The patient has a history of a cholecystectomy, rheumatoid arthritis, asthma, kidney stones , and a dilated aorta. She rates her pain as a 5/10 in severity. She has taken Tums for her symptoms but has seen no relief. The patient denies any vomiting, diarrhea, bloody stool, urinary symptoms, fevers, chills, or diaphoresis. Source of History: patient Onset: A few hours ago Position: chest Symptom Intensity: 5/10 Quality: burning Timing: other (persistent) Associated Symptoms: + cough, + SOB, + nausea, No fevers, No chills, No diaphoresis, No vomiting, No diarrhea, No urinary symptoms Note: Additional symptoms: dry heaving. Review of Systems See HPI for pertinent positives & negatives. A total of 10 systems reviewed and were otherwise negative. Past Medical & Surgical Medical Problems: (1) Cholecystectomy (2) Gastroesophageal reflux disease (3) History of asthma (4) Rheumatoid arteritis Family History Hypertension Social History Smoking Status: Never Smoker Alcohol Use: none Drug Use: none Marital Status: single Housing Status: lives alone Current/Historical Medications Scheduled Amlodipine Besylate (Amlodipine Besylate), 5 MG PO DAILY Cetirizine (Zyrtec), 10 MG PO DAILY Cyanocobalamin (Vitamin B-12), 1,000 MCG PO QAM Ergocalciferol (Vitamin D 69260 Unit), 50,000 UNIT PO WK Etanercept (Enbrel), 50 MG IM WK Famotidine (Pepcid), 20 MG PO BID Pantoprazole (Protonix), 40 MG PO QAM Potassium Ext Rel (Klor-Con), 20 MEQ PO QPM Scheduled PRN Acetaminophen (Tylenol), 500 MG PO Q6H PRN for Pain or Fever Albuterol Hfa (Ventolin Hfa), 2 PUFFS INH Q4-6H PRN for Shortness of Breath Allergies Coded Allergies: Doxycycline (Unverified Adverse Reaction, Severe, VOMITING, 10/04/16) Physical Exam Vital Signs Date Time Temp Pulse Resp B/P (MAP) Pulse Ox O2 Delivery O2 Flow Rate FiO2 10/04/16 06:59 36.8 77 16 122/75 97 10/04/16 06:31 77 16 122/75 97 Room Air 10/04/16 05:59 84 16 156/89 96 Room Air 10/04/16 05:09 79 10/04/16 04:51 97 Room Air 10/04/16 04:49 36.8 76 20 153/109 97 Room Air Physical Exam Vital signs reviewed. General: Well-appearing female, in no significant distress. HEENT: No scleral icterus, PERRLA, neck supple. Atraumatic. Cardiovascular: Regular rate and rhythm, no extra sounds. Pulmonary: Clear to auscultation bilaterally, normal work of breathing. Abdomen: Soft, nondistended, positive bowel sounds. Mildly obese abdomen. Mildly tender epigastric area. Musculoskeletal: Atraumatic, no peripheral edema. Neurologic: Patient awake alert and oriented x 3 Skin: Warm, dry, no rash Medical Decision & Procedures ER Provider Diagnostic Interpretation: One View Chest X-ray interpreted by me: no focal lung consolidation. No failure. Small hiatal hernia. Laboratory Results 10/04/16 05:05 Red Blood Count 4.65, Mean Corpuscular Volume 84.9, Mean Corpuscular Hemoglobin 27.3, Mean Corpuscular Hemoglobin Concent 32.2, Mean Platelet Volume 11.3, Neutrophils (%) (Auto) 71.2, Lymphocytes (%) (Auto) 21.7, Monocytes (%) (Auto) 5.1, Eosinophils (%) (Auto) 1.3, Basophils (%) (Auto) 0.4, Neutrophils # (Auto) 5.56, Lymphocytes # (Auto) 1.69, Monocytes # (Auto) 0.40, Eosinophils # (Auto) 0.10, Basophils # (Auto) 0.03 10/04/16 05:05 Test 10/04/16 05:05 10/04/16 05:24 White Blood Count 7.80 K/uL (4.8-10.8) Red Blood Count 4.65 M/uL (4.2-5.4) Hemoglobin 12.7 g/dL (12.0-16.0) Hematocrit 39.5 % (37-47) Mean Corpuscular Volume 84.9 fL (80-100) Mean Corpuscular Hemoglobin 27.3 pg (25-34) Mean Corpuscular Hemoglobin Concent 32.2 g/dl (32-36) Platelet Count 242 K/uL (130-400) Mean Platelet Volume 11.3 fL (7.4-10.4) Neutrophils (%) (Auto) 71.2 % Lymphocytes (%) (Auto) 21.7 % Monocytes (%) (Auto) 5.1 % Eosinophils (%) (Auto) 1.3 % Basophils (%) (Auto) 0.4 % Neutrophils # (Auto) 5.56 K/uL (1.4-6.5) Lymphocytes # (Auto) 1.69 K/uL (1.2-3.4) Monocytes # (Auto) 0.40 K/uL (0.11-0.59) Eosinophils # (Auto) 0.10 K/uL (0-0.5) Basophils # (Auto) 0.03 K/uL (0-0.2) RDW Standard Deviation 42.1 fL (36.4-46.3) RDW Coefficient of Variation 13.7 % (11.5-14.5) Immature Granulocyte % (Auto) 0.3 % Immature Granulocyte # (Auto) 0.02 K/uL (0.00-0.02) Anion Gap 6.0 mmol/L (3-11) Est Creatinine Clear Calc Drug Dose 79.5 ml/min Estimated GFR () 95.6 Estimated GFR (Non- 82.5 BUN/Creatinine Ratio 23.6 (10-20) Calcium Level 9.4 mg/dl (8.5-10.1) Total Bilirubin 0.3 mg/dl (0.2-1) Direct Bilirubin < 0.1 mg/dl (0-0.2) Aspartate Amino Transf (AST/SGOT) 14 U/L (15-37) Alanine Aminotransferase (ALT/SGPT) 22 U/L (12-78) Alkaline Phosphatase 87 U/L (45-117) Total Creatine Kinase 105 U/L (26-192) Creatine Kinase MB 1.4 ng/ml (0.5-3.6) Creatine Kinase MB Ratio 1.3 (0-3.0) Total Protein 7.3 gm/dl (6.4-8.2) Albumin 3.7 gm/dl (3.4-5.0) Lipase 205 U/L (73-393) Bedside Troponin I < 0.030 ng/ml (0-0.045) Laboratory results per my review. Medications Administered Medications (Trade) Dose Ordered Sig/Clarice Route Start Time Stop Time Status Last Admin Dose Admin Aspirin (Aspirin Chew) 324 mg NOW STAT PO 10/04/16 05:22 10/04/16 05:23 DC 10/04/16 05:35 324 MG Hydromorphone HCl (Dilaudid Inj) 0.5 mg NOW STAT IV 10/04/16 05:27 10/04/16 05:29 DC 10/04/16 05:35 0.5 MG Ondansetron HCl (Zofran Inj) 4 mg NOW STAT IV 10/04/16 05:27 10/04/16 05:29 DC 10/04/16 05:35 4 MG Sodium Chloride 1,000 ml @ 125 mls/hr Q8H STAT IV 10/04/16 05:27 10/04/16 07:34 DC 10/04/16 05:38 125 MLS/HR Sodium Chloride 250 ml @ 999 mls/hr Q16M STAT IV 10/04/16 05:27 10/04/16 05:42 DC 10/04/16 05:37 999 MLS/HR Famotidine (Pepcid Tab) 20 mg NOW ONCE PO 10/04/16 06:00 10/04/16 06:01 DC 10/04/16 06:02 20 MG ECG Indication: chest pain Rate (beats per minute): 78 Rhythm: normal sinus Findings: no acute ischemic change, no ectopy, other (Inferior T-wave flattening) ED Course 0457: Past medical records reviewed. The patient was evaluated in room A10. A complete history and physical examination was performed. 0522: Ordered Aspirin 324 mg PO. 0527: Ordered Sodium Chloride 250 ml @ 999 mls/hr IV, Sodium Chloride 1000 ml @ 125 mls/hr IV, Zofran Inj 4 mg IV, Dilaudid Inj 0.5 mg IV. 0600: Ordered Pepcid Tab 20 mg PO. 0655: Upon reevaluation, the patient appeared to have improvement of her symptoms. I discussed findings with her. She verbalized agreement of the treatment plan. The patient was discharged home. Medical Decision Differential diagnosis: Etiologies such as appendicitis, diverticulitis, PUD, biliary pathology, UTI, pancreatitis, obstruction, mesenteric ischemia, aortic pathology, infections, inflammatory bowel disease, renal colic, as well as others were entertained. This patient was evaluated and appeared to be in no significant distress. IV access was obtained and laboratory work was drawn. The patient was given aspirin 324 mg to chew. Patient was given Dilaudid 0.5 mg IV and Zofran 4 mg IV. She was hydrated with normal saline solution. Patient's laboratory work is fairly unrevealing. The chest x-ray is clear. She is noted to have a small hiatal hernia. I suspect this may be giving her new gastritis. Patient was encouraged to continue her proton access prescribed. She will use Pepcid 20 g twice daily in addition if she needs something. She will watch her diet more closely and eat earlier in the day. Patient will return to the ER for worsening of symptoms or any medical concerns. Medication Reconcilliation Current Medication List: was personally reviewed by me Blood Pressure Screening Patient's blood pressure: Elevated blood pressure Blood pressure disposition: Elevated BP felt to be situational Impression Primary Impression: Gastroesophageal reflux disease Scribe Attestation The scribe's documentation has been prepared under my direction and personally reviewed by me in its entirety. I confirm that the note above accurately reflects all work, treatment, procedures, and medical decision making performed by me. Departure Information Dispostion Home / Self-Care Prescriptions Famotidine (Pepcid) 20 Mg Tab 20 MG PO BID, #60 TAB Prov: Anita Santana M.D. 10/04/16 Referrals Amairani Simmons DO (PCP) Forms Call Back Authorization, HOME CARE DOCUMENTATION FORM, IMPORTANT VISIT INFORMATION Patient Instructions My [facility] Additional Instructions Diagnosis: Gastritis Pepcid 20 mg twice daily as needed for gastritis Continue protonix as prescribed. Avoid greasy, spicy foods Drink plenty of fluids. Return to the ED for worsening of symptoms or any medical concerns.
[2016-10-04 06:59] VITALS: BP 122/75; PULSE 77; TEMP 36.8; O2SAT 97
--- NOTE | 2016-10-04 07:18 | DIAGNOSTIC IMAGING REPORT ---
CHEST ONE VIEW PORTABLE HISTORY: epigastric pain COMPARISON: Chest CT 09/27/2016. FINDINGS: The lungs are clear. Cardiac silhouette is normal in size. No pleural effusions. No pneumothorax. Moderate hiatus hernia, unchanged. IMPRESSION: No acute process. Moderate hiatus hernia. Electronically signed by: Kev Lopez M.D. 10/04/2016 7:17 AM Dictated Date/Time: 10/04/2016 7:15 AM
== END 2016-10-04 07:00 | disposition home or self-care (01) ==
LOC: C.EDB 04:44 → C.EDA 07:00
DX: K21.9 Gastro-esophageal reflux disease without esophagitis (principal); M06.9 Rheumatoid arthritis, unspecified; J45.909 Unspecified asthma, uncomplicated; Z90.49 Acquired absence of other specified parts of digestive tract; Z79.899 Other long term (current) drug therapy; Z88.8 Allergy status to other drugs, medicaments and biological substances; Z82.49 Family history of ischemic heart disease and other diseases of the circulatory system

== ENCOUNTER 2017-04-22 18:41 | Emergency (ER) | payer OTHER ==
[~2017-04-22] VITALS: Ht 162.6 cm; Wt 73.9 kg
[~2017-04-22 18:41] MED LIST changes: -AMLO10TA2 PO; -CETI10TA84 PO; +NRV/5 PO
[2017-04-22 18:48] VITALS: TEMP 37; Ht 162.6 cm; Wt 73.9 kg
--- NOTE | 2017-04-22 19:03 | EMERGENCY ROOM VISIT NOTE ---
History Report prepared by Micaela: Ellis Diaz Under the Supervision of: Dr. Kade Saab M.D. First contact with patient: 18:54 Chief Complaint: DENTAL PAIN Stated Complaint: ABNORMAL EKG,WEAKNESS,NAUSEA-REF BY [employer] History of Present Illness The patient is a 57 year old female who presents to the Emergency Room with complaints of sharp, constant pain in her right lower molar begging several days ago. The patient notes that she began experiencing this tooth pain last October. She states that the pain resolved for a period of time, but returned several days ago. The patient reports that she is not currently feeling well, and visited [facility] this morning to be treated for her tooth pain. She notes that she was referred to the ED from [facility] due to an abnormal EKG reading. The patient notes a history of Rheumatoid Arthritis as well as asthmatic bronchitis. She reports experiencing some shortness of breath and chest pain with exertion, but feels as if these symptoms are related to her asthma as they occur seasonally. The patient denies any fever, facial swelling, nausea/vomiting, palpitations, blood clots, or any other pulmonary complications. Source of History: patient Onset: Several days ago Position: teeth (Right lower molar) Quality: sharp Timing: constant Modifying Factors (Worsening): other (exertion) Associated Symptoms: + chest pain (with exertion), + SOB (with exertion), No fevers, No nausea, No vomiting Note: Denies: Facial swelling, palpitations, blood clots, or any other pulmonary complications. Associated Symptoms: General ill feeling. Review of Systems See HPI for pertinent positives & negatives. A total of 10 systems reviewed and were otherwise negative. Past Medical & Surgical Medical Problems: (1) Cholecystectomy (2) Gastroesophageal reflux disease (3) History of asthma (4) Rheumatoid arteritis Old medical records were reviewed. Nurse's notes were reviewed and I agree with. Family History Hypertension Social History Smoking Status: Never Smoker Alcohol Use: none Drug Use: none Marital Status: single Housing Status: lives alone Current/Historical Medications Scheduled Amlodipine Besylate (Amlodipine Besylate), 5 MG PO DAILY Aspirin (Aspirin Ec), 4 TABS PO today Cetirizine (Zyrtec), 10 MG PO DAILY Cyanocobalamin (Vitamin B-12), 1,000 MCG PO QAM Ergocalciferol (Vitamin D 22474 Unit), 50,000 UNIT PO WK Etanercept (Enbrel), 50 MG IM WK Pantoprazole (Protonix), 40 MG PO QAM Potassium Ext Rel (Klor-Con), 20 MEQ PO QPM Scheduled PRN Acetaminophen (Tylenol), 500 MG PO Q6H PRN for Pain or Fever Albuterol Hfa (Ventolin Hfa), 2 PUFFS INH Q4-6H PRN for Shortness of Breath Allergies Coded Allergies: Doxycycline (Unverified Adverse Reaction, Severe, VOMITING, 10/04/16) Physical Exam Vital Signs Date Time Temp Pulse Resp B/P (MAP) Pulse Ox O2 Delivery O2 Flow Rate FiO2 04/22/17 21:00 72 16 129/81 96 Room Air 04/22/17 19:57 73 16 142/88 96 Room Air 04/22/17 19:14 76 04/22/17 18:48 37.0 92 18 178/94 98 Room Air Physical Exam General: Non-ill appearing middle aged female in no acute distress. HEENT: Normal cephalic atraumatic. Pupils are equal round and reactive to light. Extraocular movements are intact. Oropharynx is pink with moist mucous membranes. Multiple fillings in her teeth. Right lower molar is tender to palpation without fluctuance or abscess, floor of mouth is soft. No swelling of the mouth lips or tongue. Neck: Supple with a midline trachea. No meningeal signs or stiffness, no JVD or bruits. No Stridor. Chest: Clear to auscultation bilaterally. No wheezes or rhonchi. No increased work of breathing. Heart: regular rate and rhythm. Abdomen: Soft nontender, nondistended without rebound guarding or rigidity. Extremities: No cyanosis clubbing or edema. No calf tenderness or assymetry Spine/Back. Non tender to palpation. No CVA tenderness Skin: Good turgor without rashes. Neurologic exam: Cranial nerves two through 12 are intact. Motor and sensation are intact and symmetrical throughout. Medical Decision & Procedures ER Provider Diagnostic Interpretation: Radiology results as stated below per my review and radiologist interpretation: CHEST ONE VIEW PORTABLE CLINICAL HISTORY: CHEST PAIN dyspnea COMPARISON STUDY: 10/04/2016 FINDINGS: The bones soft tissues and hemidiaphragms are normal. The cardiomediastinal silhouette is normal. The lungs are clear. The pulmonary vasculature is normal. IMPRESSION: Negative chest. The above report was generated using voice recognition software. It may contain grammatical, syntax or spelling errors. Electronically signed by: Galo Ruiz M.D. 04/22/2017 7:29 PM Dictated Date/Time: 04/22/2017 7:28 PM Laboratory Results 04/22/17 19:05 Red Blood Count 4.87, Mean Corpuscular Volume 82.1, Mean Corpuscular Hemoglobin 28.5, Mean Corpuscular Hemoglobin Concent 34.8, Mean Platelet Volume 10.5, Neutrophils (%) (Auto) 52.1, Lymphocytes (%) (Auto) 36.6, Monocytes (%) (Auto) 8.8, Eosinophils (%) (Auto) 1.8, Basophils (%) (Auto) 0.6, Neutrophils # (Auto) 3.68, Lymphocytes # (Auto) 2.59, Monocytes # (Auto) 0.62, Eosinophils # (Auto) 0.13, Basophils # (Auto) 0.04 04/22/17 19:05 Test 04/22/17 19:05 04/22/17 20:46 White Blood Count 7.07 K/uL (4.8-10.8) Red Blood Count 4.87 M/uL (4.2-5.4) Hemoglobin 13.9 g/dL (12.0-16.0) Hematocrit 40.0 % (37-47) Mean Corpuscular Volume 82.1 fL (80-100) Mean Corpuscular Hemoglobin 28.5 pg (25-34) Mean Corpuscular Hemoglobin Concent 34.8 g/dl (32-36) Platelet Count 304 K/uL (130-400) Mean Platelet Volume 10.5 fL (7.4-10.4) Neutrophils (%) (Auto) 52.1 % Lymphocytes (%) (Auto) 36.6 % Monocytes (%) (Auto) 8.8 % Eosinophils (%) (Auto) 1.8 % Basophils (%) (Auto) 0.6 % Neutrophils # (Auto) 3.68 K/uL (1.4-6.5) Lymphocytes # (Auto) 2.59 K/uL (1.2-3.4) Monocytes # (Auto) 0.62 K/uL (0.11-0.59) Eosinophils # (Auto) 0.13 K/uL (0-0.5) Basophils # (Auto) 0.04 K/uL (0-0.2) RDW Standard Deviation 40.1 fL (36.4-46.3) RDW Coefficient of Variation 13.3 % (11.5-14.5) Immature Granulocyte % (Auto) 0.1 % Immature Granulocyte # (Auto) 0.01 K/uL (0.00-0.02) Anion Gap 8.0 mmol/L (3-11) Est Creatinine Clear Calc Drug Dose 87.8 ml/min Estimated GFR () 111.0 Estimated GFR (Non- 95.7 BUN/Creatinine Ratio 16.4 (10-20) Calcium Level 9.4 mg/dl (8.5-10.1) Total Bilirubin 0.6 mg/dl (0.2-1) Direct Bilirubin 0.2 mg/dl (0-0.2) Aspartate Amino Transf (AST/SGOT) 18 U/L (15-37) Alanine Aminotransferase (ALT/SGPT) 27 U/L (12-78) Alkaline Phosphatase 93 U/L (45-117) Total Creatine Kinase 211 U/L (26-192) Creatine Kinase MB 4.0 ng/ml (0.5-3.6) Creatine Kinase MB Ratio 1.9 (0-3.0) Total Protein 8.0 gm/dl (6.4-8.2) Albumin 4.1 gm/dl (3.4-5.0) Lipase 178 U/L (73-393) Bedside Troponin I < 0.030 ng/ml (0-0.045) Laboratory studies as stated above per my review. 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 No acute ischemic changes or ectopy. No significant chances compared to first EKG. ED Course 1854: Past medical records reviewed. The patient was evaluated in room C3, and a complete history and physical examination were performed. 2105: Upon reevaluation, the patient is resting comfortably. I discussed the results and treatment plan with her. She verbalized agreement of the treatment plan. The patient was discharged home. Medical Decision Differential Diagnosis Include: Dental abscess, cardiac disease, arrhythmia, sepsis, electrolyte or metabolic abnormality This patient comes in as described above. She was placed in room C3. She is here for treatment and evaluation of jaw pain. She has a toothache in the right lower molar. She went to [facility] hoping to get antibiotics they did an EKG which the computer read as inferior infarct and they sent her here. I have reviewed the EKG there is no acute STEMI changes. she has a Q-wave in lead III and a small one in aVF. She has some nonspecific T-wave abnormalities. We repeated EKG here and did multiple blood tests including cardiac enzymes as well as a chest x-ray. She was reassessed frequently. She had 2 EKGs here which shows no acute ischemic changes. In regards to the Q-wave in lead III this is old when compared to old EKGs here. She had 2 troponins that were both negative here. Chest x-ray is clear. CK is minimally elevated but most likely is more muscular as the troponin is negative. She has no evidence to suggest significant abscess or Javad's angina. I will have her continue the antibiotics and follow-up with her regular doctor. At this point, there is nothing to suggest she has acute coronary syndrome causing her symptoms. She was happy with the plan and discharged to home. Medication Reconcilliation Current Medication List: was personally reviewed by me Blood Pressure Screening Patient's blood pressure: Normal blood pressure Impression Primary Impression: Tooth ache Additional Impression: EKG abnormality Scribe Attestation The scribe's documentation has been prepared under my direction and personally reviewed by me in its entirety. I confirm that the note above accurately reflects all work, treatment, procedures, and medical decision making performed by me. Departure Information Referrals No Doctor, Assigned (PCP) Forms HOME CARE DOCUMENTATION FORM, IMPORTANT VISIT INFORMATION Patient Instructions My [facility] Additional Instructions Rest. Drink plenty of fluids. Use your antibiotic Return to the ER if: Chest pain, shortness of breath, worsening symptoms, any new problems or concerns Follow-up with your doctor on Monday for recheck or return to the ER over the weekend if symptoms worsen Problem Qualifiers
[2017-04-22 19:26] LABS: BASO % 0.6 %; BASO ABS # 0.04 K/uL (0-0.2); EOS % 1.8 %; EOS ABS # 0.13 K/uL (0-0.5); HEMOGLOBIN 13.9 g/dL (12.0-16.0); IG# 0.01 K/uL (0.00-0.02); LYMPH % 36.6 %; LYMPH ABS # 2.59 K/uL (1.2-3.4); MEAN CELL VOLUME 82.1 fL (80-100); MEAN CORPUSCULAR HEMOGLOBIN 28.5 pg (25-34); MEAN CORPUSCULAR HGB CONC 34.8 g/dl (32-36); MEAN PLATELET VOLUME 10.5 fL (7.4-10.4); MONO % 8.8 %; MONO ABS # 0.62 K/uL (0.11-0.59); NEUT % 52.1 %; NEUT ABS # 3.68 K/uL (1.4-6.5); PLATELET COUNT 304 K/uL (130-400); RED CELL DISTRIBUTION WIDTH CV 13.3 % (11.5-14.5); RED CELL DISTRIBUTION WIDTH SD 40.1 fL (36.4-46.3); WHITE BLOOD COUNT 7.07 K/uL (4.8-10.8)
--- NOTE | 2017-04-22 19:30 | DIAGNOSTIC IMAGING REPORT ---
CHEST ONE VIEW PORTABLE CLINICAL HISTORY: CHEST PAIN dyspnea COMPARISON STUDY: 10/04/2016 FINDINGS: The bones soft tissues and hemidiaphragms are normal. The cardiomediastinal silhouette is normal. The lungs are clear. The pulmonary vasculature is normal. IMPRESSION: Negative chest. The above report was generated using voice recognition software. It may contain grammatical, syntax or spelling errors. Electronically signed by: Galo Ruiz M.D. 04/22/2017 7:29 PM Dictated Date/Time: 04/22/2017 7:28 PM
[2017-04-22 19:47] LABS: ALBUMIN 4.1 gm/dl (3.4-5.0); CALCIUM 9.4 mg/dl (8.5-10.1); CREATININE 0.68 mg/dl (0.60-1.20); POTASSIUM 3.2 mmol/L (3.5-5.1)
[2017-04-22] MEDS ORDERED: CETI10TA84 PO (20:27)
[2017-04-22] MEDS ORDERED: ASPI81TA28 PO (20:47)
[2017-04-22 21:00] VITALS: BP 129/81; PULSE 72; O2SAT 96
== END 2017-04-22 21:15 | disposition home or self-care (01) ==
LOC: C.EDB 18:42 → C.EDC 21:15
DX: K08.89 Other specified disorders of teeth and supporting structures (principal); R94.31 Abnormal electrocardiogram [ECG] [EKG]; Z87.09 Personal history of other diseases of the respiratory system; Z79.82 Long term (current) use of aspirin; Z88.1 Allergy status to other antibiotic agents; Z82.49 Family history of ischemic heart disease and other diseases of the circulatory system

== ENCOUNTER 2018-03-05 01:39 | Observation (INO) ==
[2018-03-05] MEDS ORDERED: NITROGLYCERIN 2% OINTMENT 30GM TUBE EXT ONE (01:54)
[2018-03-05] MEDS ORDERED: ASPIRIN CHEW 324 MG PO STA (01:54)
[2018-03-05] MEDS ORDERED: SODIUM CHLORIDE 0.9% 1000ML 1,000 ML IV SCH (02:00)
[2018-03-05 02:10] LABS: Basophils # (auto) 0.05 K/uL (0-0.2); Basophils % (auto) 0.8 %; Eosinophils # (auto) 0.21 K/uL (0-0.5); Eosinophils % (auto) 3.3 %; Hematocrit (blood only) 40.8 % (37-47); Hemoglobin 13.6 g/dL (12.0-16.0); Lymphocytes # (auto) 3.09 K/uL (1.2-3.4); Lymphocytes % (auto) 48.7 %; Mean Corpuscular Hgb Conc 33.3 g/dL (32-36); Mean Platelet Volume 11.7 fL (7.4-10.4); Monocytes # (auto) 0.71 K/uL (0.11-0.59); Monocytes % (auto) 11.2 %; Neutrophils # (auto) 2.28 K/uL (1.4-6.5); Platelet Count 252 K/uL (130-400); RDW Coefficient of Variation 13.4 % (11.5-14.5); RDW Standard Deviation 41.2 fL (36.4-46.3); White Blood Count 6.34 K/uL (4.8-10.8)
[2018-03-05 02:22] LABS: Partial Thromboplastin Ratio 0.9; Partial Thromboplastin Time 23.2 Seconds (21.0-31.0); Prothrombin Time 9.9 Seconds (9.0-12.0)
[2018-03-05 02:27] LABS: Alanine Aminotransferase 23 U/L (12-78); Aspartate Aminotransferase 18 U/L (15-37); BUN Creatinine Ratio 33.7 (10-20); Blood Urea Nitrogen 22 mg/dl (7-18); Calcium 9.3 mg/dl (8.5-10.1); Carbon Dioxide 28 mmol/L (21-32); Chloride 109 mmol/L (98-107); Creatinine Clr Calc Pharmacy 87.6 ml/min; Est GFR (African American) 111.8; Est GFR (Non-African American) 96.5; Glucose 119 mg/dl (70-99); Magnesium 2.2 mg/dl (1.8-2.4); Potassium 3.5 mmol/L (3.5-5.1); Sodium 142 mmol/L (136-145)
[2018-03-05 02:38] LABS: Albumin Globulin Ratio 1.1 (0.9-2); Alkaline Phosphatase 76 U/L (45-117); Bilirubin,Total 0.3 mg/dl (0.2-1); Creatine Kinase 237 U/L (26-192); Creatine Kinase MB 4.1 ng/ml (0.5-3.6); Globulin 3.8 gm/dl (2.5-4.0); Total Protein 7.8 gm/dl (6.4-8.2); Troponin I < 0.015 ng/ml (0-0.045)
[2018-03-05] MEDS ORDERED: MoRPHine SULFATE 4 MG/ML 1 ML CARP\\VIAL IV STA (02:47)
[2018-03-05] MEDS ORDERED: ONDANSETRON INJ 2 MG/ML 2 ML VIAL IV STA (02:58)
[2018-03-05] MEDS ORDERED: ONDANSETRON INJ 2 MG/ML 2 ML VIAL ONE (02:58)
--- NOTE | 2018-03-05 04:23 | History & Physical Report ---
Date of Service March 05, 2018 Assessment & Plan (1) Chest pain: Rose is a 58-year-old female with past medical history significant for benign essential hypertension, rheumatoid arthritis on Enbrel, asthma, hypokalemia, osteoporosis, reflux, gastropathy who presents with chest pain. She states the pain awoke her from sleep earlier this evening, was located on the left side with some radiation to her left shoulder, substernal,"felt like a cramp", made worse by breathing deeply, made better by positional changes, lasted 1 hour and would not self resolve so she drove herself to the emergency room. 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 She states she was lifting heavy packages earlier today, but this is not abnormal for her. Patient states she does see her PCP regularly yearly and is up-to-date on all her preventive medicine. She had a similar episode in 2014 and was admitted. Echo done then revealed normal ejection fraction and no wall abnormalities. Unsure if she did her stress test. ED course: Troponin x1 normal, Nitropaste and morphine given, aspirin given, Zofran given, 1 L saline given. CBC unremarkable. PT/INR normal. D-dimer normal. BMP unremarkable. CK-MB slightly elevated 4.1, lipase and TSH normal. 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 Denies tobacco, drinking or drugs. Chest pain -Cardiac origin versus costochondritis versus reflux disease versus esophageal spasm -We will trend troponins. First troponin was normal. -Serial EKGs -Repeat echo -Monitor on telemetry -Lipids, A1c pending FEN/GI: Heart healthy diet DVT ppx: SCDs CODE STATUS: Full DISPO: Telemetry (2) Asthma: Continue home albuterol as needed (3) Gastropathy: Continue home Protonix scheduled -Consider follow-up with gastroenterology on an outpatient basis (4) Rheumatoid arthritis: Stable -patient takes Enbrel subcutaneously weekly. (5) Hypertension: Continue home amlodipine 5 mg daily Continue home potassium chloride 20 mEq History of Present Illness Chief Complaint: Chest pain Primary Care Provider: Amairani Simmons DO Rose is a 58-year-old female with past medical history significant for benign essential hypertension, rheumatoid arthritis on Enbrel, asthma, hypokalemia, osteoporosis, reflux, gastropathy who presents with chest pain. She states the pain awoke her from sleep earlier this evening, was located on the left side with some radiation to her left shoulder, substernal,"felt like a cramp", made worse by breathing deeply, made better by positional changes, lasted 1 hour and would not self resolve so she drove herself to the emergency room. 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 She states she was lifting heavy packages earlier today, but this is not abnormal for her. Patient states she does see her PCP regularly yearly and is up-to-date on all her preventive medicine. She had a similar episode in 2014 and was admitted. Echo done then revealed normal ejection fraction and no wall abnormalities. Unsure if she did her stress test. ED course: Troponin x1 normal, Nitropaste and morphine given, aspirin given, Zofran given, 1 L saline given. CBC unremarkable. PT/INR normal. D-dimer normal. BMP unremarkable. CK-MB slightly elevated 4.1, lipase and TSH normal. 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 Denies tobacco, drinking or drugs. Allergies Allergy/AdvReac Type Severity Reaction Status Date / Time doxycycline AdvReac Severe VOMITING Verified 10/22/17 14:49 Home Medications Home Medications Medication Instructions Recorded Confirmed Type albuterol sulfate [Ventolin HFA] 2 puff INHALATION UD PRN 10/22/17 10/22/17 History amlodipine 5 mg PO DAILY 10/22/17 10/22/17 History cyanocobalamin (vitamin B-12) 1,000 mcg PO DAILY 10/22/17 10/22/17 History ergocalciferol (vitamin D2) 50,000 unit PO DAILY 10/22/17 10/22/17 History [Drisdol] etanercept [Enbrel] 50 mg SUBCUT WK 10/22/17 10/22/17 History pantoprazole 40 mg PO DAILY 10/22/17 10/22/17 History potassium chloride [Klor-Con M20] 20 meq PO DAILY 10/22/17 10/22/17 History Past Med/Surg History Medical History Hiatal hernia (Acute) History of asthma Chest pain (Acute) Asthmatic bronchitis with acute exacerbation (Acute) Surgical History H/O partial thyroidectomy Family History Father Diabetes Hypertension Social History Current Living Situation: Alone Other Information That Helps Us Care for You: No Feels Safe at Home: Yes Safety Concerns: Feels Safe At This Time Smoking Status: Never smoker Do You Dip or Chew Tobacco: No Second Hand Exposure: No Tobacco Cessation Education Requested by Patient: No Hx Alcohol Use: No Hx Substance Use: No Beliefs That Will Affect Care: None Preferred Language: Irish Sales Lead Required: No Review of Systems All systems reviewed & are unremarkable except as noted in HPI & below (Patient denies chest pain currently. Patient denies dyspnea currently. Also: Patient denies headaches, visual changes, abdominal pain, diarrhea or constipation that is abnormal for her, leg pain or weakness.) Physical Exam 2 Vital Signs (Past 24 Hours): Last Vital Signs Temp 37.0 C 03/05/18 01:42 Pulse 77 03/05/18 03:31 Resp 19 03/05/18 03:31 BP 160/94 H 03/05/18 03:31 Pulse Ox 95 03/05/18 03:31 Physical Exam: Vitals noted as above and within normal limits. GENERAL: Awake, alert, well-appearing, in no distress HENT: Normocephalic, atraumatic. EYES: Normal conjunctiva. Sclera non-icteric. EOMI. NECK: Supple. Full range of motion. no JVD RESPIRATORY: Clear to auscultation. CARDIAC: Regular rate, normal rhythm. Extremities warm and well perfused. Pulses equal. ABDOMEN: Soft, non-distended. No tenderness to palpation. No rebound or guarding. No masses. Bowel sounds are normal. LOWER EXTREMITIES: Calves are equal size bilaterally and non-tender. No edema. No discoloration. NEURO: No gross focal motor deficits noted. Sensation in tact. CN II-XII grossly in tact. SKIN: Rash not present. No jaundice noted. Results & Data Laboratory Results 03/05/18 03/05/18 03/05/18 Range/Units 01:55 01:55 01:55 WBC 6.34 (4.8-10.8) K/uL RBC 4.80 (4.2-5.4) M/uL Hgb 13.6 (12.0-16.0) g/dL Hct 40.8 (37-47) % MCV 85.0 (80-100) fL MCH 28.3 (25-34) pg MCHC 33.3 (32-36) g/dL RDW Std Deviation 41.2 (36.4-46.3) fL RDW Coeff of Rosi 13.4 (11.5-14.5) % Plt Count 252 (130-400) K/uL MPV 11.7 H (7.4-10.4) fL Immature Gran % (Auto) 0.0 % Neut % (Auto) 36.0 % Lymph % (Auto) 48.7 % Roberts % (Auto) 11.2 % Eos % (Auto) 3.3 % Baso % (Auto) 0.8 % Immature Gran # (Auto) 0.00 (0.00-0.02) K/uL Neut # (Auto) 2.28 (1.4-6.5) K/uL Lymph # (Auto) 3.09 (1.2-3.4) K/uL Roberts # (Auto) 0.71 H (0.11-0.59) K/uL Eos # (Auto) 0.21 (0-0.5) K/uL Baso # (Auto) 0.05 (0-0.2) K/uL PT 9.9 (9.0-12.0) Seconds INR 1.0 (0.9-1.1) APTT 23.2 (21.0-31.0) Seconds PTT Ratio 0.9 D-Dimer 290 (0-500) ug/L FEU Sodium 142 (136-145) mmol/L Potassium 3.5 (3.5-5.1) mmol/L Chloride 109 H (98-107) mmol/L Carbon Dioxide 28 (21-32) mmol/L Anion Gap 5.0 (3-11) BUN 22 H (7-18) mg/dl Creatinine 0.65 (0.6-1.2) mg/dl Est Cr Clr Drug Dosing 87.6 ml/min Est GFR ( Amer) 111.8 Est GFR (Non-Af Amer) 96.5 BUN/Creatinine Ratio 33.7 H (10-20) Glucose 119 H (70-99) mg/dl Calcium 9.3 (8.5-10.1) mg/dl Magnesium 2.2 (1.8-2.4) mg/dl Total Bilirubin 0.3 (0.2-1) mg/dl AST 18 (15-37) U/L ALT 23 (12-78) U/L Alkaline Phosphatase 76 (45-117) U/L Total Creatine Kinase 237 H (26-192) U/L CK-MB (CK-2) 4.1 H (0.5-3.6) ng/ml CK/CKMB % Calc 1.7 (0-3.0) Troponin I < 0.015 (0-0.045) ng/ml Total Protein 7.8 (6.4-8.2) gm/dl Albumin 4.0 (3.4-5.0) gm/dl Globulin 3.8 (2.5-4.0) gm/dl Albumin/Globulin Ratio 1.1 (0.9-2) Lipase 245 (73-393) U/L TSH 2.120 (0.300-4.500) uIu/ml Diagnostic Findings Chest x-ray reveals normally inflated lungs, side view reveals significant lordosis in the thoracic spine, no cardiomegaly or pleural effusions. Medications Administered Nitrostat, Zofran, fluids, aspirin ECG Additional Comments: Normal sinus rhythm with no ST changes Code Status & VTE Plan Code Status Full Supervising Physician Co-Signing Physician Notes Attending addendum: I have physically seen this patient, have supervised the medical residents activities, and agree with the H&P unless as otherwise noted. Assessment and Plan: Chest pain of uncertain etiology-- The patient will be admitted to telemetry for serial cardiac enzymes, serial EKG's, cardiac rhythm monitoring and a 2-D echocardiogram with Dopplers. Similar presentation of symptoms in 2015's admission. Continue amlodipine 5 mg daily, potassium chloride 20 mEq daily. Start aspirin 81 mg daily. Patient follows with Dr. Black, who will be consulted. If above workup is negative, patient should have a stress test prior to discharge. Remainder of orders and notations as noted. Resident Activity Tracking Resident Involvement: Resident Care Provided Care Provided: [facility] Medicine
[2018-03-05] MEDS ORDERED: ALBUTEROL HFA 8 GM INHALER INH PRN (05:05)
[2018-03-05] MEDS ORDERED: ACETAMINOPHEN 325 MG TAB PO PRN (05:05)
[2018-03-05] MEDS ORDERED: NITROGLYCERIN SL 0.4 MG/TAB TAB SL PRN (05:05)
[2018-03-05] MEDS ORDERED: ALUMINUM/MAGNESIUM SUSP 30 ML UDC PO PRN (05:05)
[2018-03-05 06:28] LABS: Chol HDL Ratio 3; Cholesterol 149 mg/dl (0-200); HDL Cholesterol 48 mg/dl; LDL Cholesterol Calculated 92 mg/dl; Triglycerides 43 mg/dl (0-150); VLDL Cholesterol 9 mg/dl
--- NOTE | 2018-03-05 06:29 | XRay Report ---
XR chest 2V routine HISTORY: 58 years-old Female Chest pain acute atypical chest pain COMPARISON: Chest and rib radiographs 07/27/2017 TECHNIQUE: PA and lateral views of the chest FINDINGS: Cardiac mediastinal and hilar silhouettes appear unchanged. Moderate sized hiatal hernia. Surgical cl ip projects over the left lower neck. No pneumothorax, pleural effusion, focal airspace consolidation or overt pulmonary edema. 2.2 cm calcification about the right greater tuberosity suggest rotator cu ff calcific tendinosis or calcific bursitis. Degenerative changes of the shoulders and spine. Surgica l clips project over the abdominal right upper quadrant. IMPRESSION: No acute process. The above report was generated using voice recognition software. It may contain grammatical, syntax o r spelling errors. Electronically signed by: Srinivas Vincent M.D. 03/05/2018 6:27 AM
--- NOTE | 2018-03-05 06:55 | Emergency Department Note ---
History of Present Illness General Chief complaint: Cardiac Assessment Stated complaint: CHEST DISCOMFORT Time Seen by Provider: 03/05/18 01:46 History of Present Illness Maximum Pain Intensity: 6 This is a 58-year-old female presenting to the emergency department for evaluation of left-sided chest pain for the past 90 minutes. The patient states that she was laying down at home at the onset of symptoms. She describes her discomfort as a cramping/squeezing sensation in her left side chest wall. Pain does not radiate and is currently rated a 6/10. The patient does not have lightheadedness or dizziness. No recent fevers or chills. The patient does have a history of hypertension and asthma. She states that her asthma does not typically feel like this. She does not report recent travel history. Home Medications Home Medications Medication Instructions Recorded Confirmed Type albuterol sulfate [Ventolin HFA] 2 puff INHALATION UD PRN 10/22/17 10/22/17 History amlodipine 5 mg PO DAILY 10/22/17 10/22/17 History cyanocobalamin (vitamin B-12) 1,000 mcg PO DAILY 10/22/17 10/22/17 History ergocalciferol (vitamin D2) 50,000 unit PO DAILY 10/22/17 10/22/17 History [Drisdol] etanercept [Enbrel] 50 mg SUBCUT WK 10/22/17 10/22/17 History pantoprazole 40 mg PO DAILY 10/22/17 10/22/17 History potassium chloride [Klor-Con M20] 20 meq PO DAILY 10/22/17 10/22/17 History Allergies Allergy/AdvReac Type Severity Reaction Status Date / Time doxycycline AdvReac Severe VOMITING Verified 10/22/17 14:49 Past Med/Surg History Medical History Hiatal hernia (Acute) History of asthma Chest pain (Acute) Asthmatic bronchitis with acute exacerbation (Acute) Surgical History H/O partial thyroidectomy Family History Father Diabetes Hypertension Social History Current Living Situation: Alone Other Information That Helps Us Care for You: No Feels Safe at Home: Yes Safety Concerns: Feels Safe At This Time Smoking Status: Never smoker Do You Dip or Chew Tobacco: No Second Hand Exposure: No Tobacco Cessation Education Requested by Patient: No Hx Alcohol Use: No Hx Substance Use: No Beliefs That Will Affect Care: None Preferred Language: Egyptian Instruction Librarian Required: No Review of Systems A total of 10 systems reviewed and were otherwise negative Physical Exam Vital Signs Vital Signs - 24 hr 03/05/18 01:42 03/05/18 01:50 03/05/18 02:02 Temperature 37.0 C Temperature Source Oral Sepsis Recent Fever Within 48 Hours No Sepsis New/Unexplained Change in Mental Status No Sepsis Action Taken by Nursing No Action Required Pulse Rate 78 78 Pulse Rhythm Regular Pulse Strength Normal Respiratory Rate 20 14 Respiratory Effort / Characteristics Non-Labored Respiratory Depth Shallow Blood Pressure 162/88 H 163/94 H Blood Pressure Mean 112 117 Blood Pressure Position Sitting Pulse Oximetry 99 97 97 Oxygen Delivery Method Room Air Room Air 03/05/18 02:31 03/05/18 03:01 03/05/18 03:31 Temperature Temperature Source Sepsis Recent Fever Within 48 Hours Sepsis New/Unexplained Change in Mental Status Sepsis Action Taken by Nursing Pulse Rate 72 76 77 Pulse Rhythm Pulse Strength Respiratory Rate 15 15 19 Respiratory Effort / Characteristics Respiratory Depth Blood Pressure 157/89 H 180/101 H 160/94 H Blood Pressure Mean 111 127 116 Blood Pressure Position Pulse Oximetry 97 97 95 Oxygen Delivery Method Room Air Room Air Room Air 03/05/18 04:01 03/05/18 04:31 03/05/18 04:35 Temperature Temperature Source Sepsis Recent Fever Within 48 Hours Sepsis New/Unexplained Change in Mental Status Sepsis Action Taken by Nursing Pulse Rate 78 70 70 Pulse Rhythm Pulse Strength Respiratory Rate 13 15 15 Respiratory Effort / Characteristics Respiratory Depth Blood Pressure 140/84 122/74 122/74 Blood Pressure Mean 102 90 Blood Pressure Position Pulse Oximetry 96 95 95 Oxygen Delivery Method Room Air Room Air 03/05/18 04:55 Temperature Temperature Source Sepsis Recent Fever Within 48 Hours Sepsis New/Unexplained Change in Mental Status Sepsis Action Taken by Nursing Pulse Rate 73 Pulse Rhythm Pulse Strength Respiratory Rate Respiratory Effort / Characteristics Respiratory Depth Blood Pressure Blood Pressure Mean Blood Pressure Position Pulse Oximetry Oxygen Delivery Method Room Air VITALS: Vitals are noted on the nurse's note and reviewed by myself. Vital signs with mild hypertension GENERAL: Well-developed, well-nourished, white female, who is clutching her left side chest wall with her right hand HEAD: Normocephalic atraumatic. EARS: External ear normal. External auditory canals clear, tympanic membranes pearly aggarwal without erythema or effusion bilaterally. EYES: Pupils equal round and reactive to light and accommodation. Conjunctivae without injection, sclerae without icterus. Extraocular movements intact. NOSE: Patent, turbinates without inflammation or discharge. MOUTH: Mucous membranes moist. Tonsils are not enlarged. Pharynx without erythema, blood, or exudate. Uvula midline. Airway patent. NECK: Supple without nuchal rigidity. No lymphadenopathy. No thyromegaly. Cervical spine is nontender. HEART: Regular rate and rhythm without murmurs gallops or rubs. LUNGS: Clear to auscultation bilaterally without wheezes, rales or rhonchi. No retractions or accessory muscle use. ABDOMEN: Positive normal bowel sounds x 4. Soft, nontender, without masses or organomegaly. No guarding or rebound tenderness. MUSCULOSKELETAL: No muscle atrophy, erythema, or edema noted. Full range of motion in all extremities. NEURO: Patient was alert and oriented to person place and time. CN II through XII grossly intact. SKIN: The skin was without rashes, erythema, edema, or bruising. Capillary refill less than 2 seconds. Course Administered Medications Acetaminophen (Tylenol) 650 mg PO Q4H PRN PRN Reason: Pain or Fever Stop: 04/04/18 05:04 Last Admin: 03/05/18 05:19 Dose: 650 mg Discontinued Medications Aspirin (Aspirin) 324 mg PO NOW STA Stop: 03/05/18 01:55 Last Admin: 03/05/18 02:03 Dose: 324 mg Sodium Chloride (Nss 1000ml) 1,000 mls @ 999 mls/hr IV .Q1H1M STEPHANIE Stop: 03/05/18 03:00 Last Infusion: 03/05/18 02:54 Dose: 0 mls/hr Admin: 03/05/18 02:07 Dose: 999 mls/hr Morphine Sulfate (Morphine Sulfate) 4 mg IV NOW STA Stop: 03/05/18 02:48 Last Admin: 03/05/18 03:00 Dose: 4 mg Nitroglycerin (Nitro-Bid 2%) 1 inch EXT NOW ONE Stop: 03/05/18 01:55 Last Admin: 03/05/18 02:03 Dose: 1 inch Ondansetron HCl (Zofran) Confirm Administered Dose 4 mg .ROUTE .STK-MED ONE Stop: 03/05/18 02:59 Last Admin: 03/05/18 03:00 Dose: Not Given Ondansetron HCl (Zofran) 4 mg IV NOW STA Stop: 03/05/18 02:59 Last Admin: 03/05/18 03:00 Dose: 4 mg Medical Decision Making Differential Diagnosis Differential diagnosis includes, but is not limited to: Myocardial infarction, dysrhythmia, pericarditis, pneumothorax, aortic aneurysm/dissection, DVT/PE, anxiety, GERD, PUD, electrolyte imbalance, thyroid disorder, pneumonia, bronchitis, pancreatitis, and others Laboratory Data Result diagrams: 03/05/18 01:55 03/05/18 01:55 Lab Results 03/05/18 03/05/18 03/05/18 Range/Units 01:55 01:55 01:55 WBC 6.34 (4.8-10.8) K/uL RBC 4.80 (4.2-5.4) M/uL Hgb 13.6 (12.0-16.0) g/dL Hct 40.8 (37-47) % MCV 85.0 (80-100) fL MCH 28.3 (25-34) pg MCHC 33.3 (32-36) g/dL RDW Std Deviation 41.2 (36.4-46.3) fL RDW Coeff of Rosi 13.4 (11.5-14.5) % Plt Count 252 (130-400) K/uL MPV 11.7 H (7.4-10.4) fL Immature Gran % (Auto) 0.0 % Neut % (Auto) 36.0 % Lymph % (Auto) 48.7 % Buchanan % (Auto) 11.2 % Eos % (Auto) 3.3 % Baso % (Auto) 0.8 % Immature Gran # (Auto) 0.00 (0.00-0.02) K/uL Neut # (Auto) 2.28 (1.4-6.5) K/uL Lymph # (Auto) 3.09 (1.2-3.4) K/uL Buchanan # (Auto) 0.71 H (0.11-0.59) K/uL Eos # (Auto) 0.21 (0-0.5) K/uL Baso # (Auto) 0.05 (0-0.2) K/uL PT 9.9 (9.0-12.0) Seconds INR 1.0 (0.9-1.1) APTT 23.2 (21.0-31.0) Seconds PTT Ratio 0.9 D-Dimer 290 (0-500) ug/L FEU Sodium 142 (136-145) mmol/L Potassium 3.5 (3.5-5.1) mmol/L Chloride 109 H (98-107) mmol/L Carbon Dioxide 28 (21-32) mmol/L Anion Gap 5.0 (3-11) BUN 22 H (7-18) mg/dl Creatinine 0.65 (0.6-1.2) mg/dl Est Cr Clr Drug Dosing 87.6 ml/min Est GFR ( Amer) 111.8 Est GFR (Non-Af Amer) 96.5 BUN/Creatinine Ratio 33.7 H (10-20) Glucose 119 H (70-99) mg/dl Calcium 9.3 (8.5-10.1) mg/dl Magnesium 2.2 (1.8-2.4) mg/dl Total Bilirubin 0.3 (0.2-1) mg/dl AST 18 (15-37) U/L ALT 23 (12-78) U/L Alkaline Phosphatase 76 (45-117) U/L Total Creatine Kinase 237 H (26-192) U/L CK-MB (CK-2) 4.1 H (0.5-3.6) ng/ml CK/CKMB % Calc 1.7 (0-3.0) Troponin I < 0.015 (0-0.045) ng/ml Total Protein 7.8 (6.4-8.2) gm/dl Albumin 4.0 (3.4-5.0) gm/dl Globulin 3.8 (2.5-4.0) gm/dl Albumin/Globulin Ratio 1.1 (0.9-2) Triglycerides (0-150) mg/dl Cholesterol (0-200) mg/dl LDL Cholesterol, Calc mg/dl VLDL Cholesterol, Calc mg/dl HDL Cholesterol mg/dl Cholesterol/HDL Ratio Lipase 245 (73-393) U/L TSH 2.120 (0.300-4.500) uIu/ml 03/05/18 Range/Units 05:42 WBC (4.8-10.8) K/uL RBC (4.2-5.4) M/uL Hgb (12.0-16.0) g/dL Hct (37-47) % MCV (80-100) fL MCH (25-34) pg MCHC (32-36) g/dL RDW Std Deviation (36.4-46.3) fL RDW Coeff of Rosi (11.5-14.5) % Plt Count (130-400) K/uL MPV (7.4-10.4) fL Immature Gran % (Auto) % Neut % (Auto) % Lymph % (Auto) % Buchanan % (Auto) % Eos % (Auto) % Baso % (Auto) % Immature Gran # (Auto) (0.00-0.02) K/uL Neut # (Auto) (1.4-6.5) K/uL Lymph # (Auto) (1.2-3.4) K/uL Buchanan # (Auto) (0.11-0.59) K/uL Eos # (Auto) (0-0.5) K/uL Baso # (Auto) (0-0.2) K/uL PT (9.0-12.0) Seconds INR (0.9-1.1) APTT (21.0-31.0) Seconds PTT Ratio D-Dimer (0-500) ug/L FEU Sodium (136-145) mmol/L Potassium (3.5-5.1) mmol/L Chloride (98-107) mmol/L Carbon Dioxide (21-32) mmol/L Anion Gap (3-11) BUN (7-18) mg/dl Creatinine (0.6-1.2) mg/dl Est Cr Clr Drug Dosing ml/min Est GFR ( Amer) Est GFR (Non-Af Amer) BUN/Creatinine Ratio (10-20) Glucose (70-99) mg/dl Calcium (8.5-10.1) mg/dl Magnesium (1.8-2.4) mg/dl Total Bilirubin (0.2-1) mg/dl AST (15-37) U/L ALT (12-78) U/L Alkaline Phosphatase (45-117) U/L Total Creatine Kinase (26-192) U/L CK-MB (CK-2) (0.5-3.6) ng/ml CK/CKMB % Calc (0-3.0) Troponin I (0-0.045) ng/ml Total Protein (6.4-8.2) gm/dl Albumin (3.4-5.0) gm/dl Globulin (2.5-4.0) gm/dl Albumin/Globulin Ratio (0.9-2) Triglycerides 43 (0-150) mg/dl Cholesterol 149 (0-200) mg/dl LDL Cholesterol, Calc 92 mg/dl VLDL Cholesterol, Calc 9 mg/dl HDL Cholesterol 48 mg/dl Cholesterol/HDL Ratio 3 Lipase (73-393) U/L TSH (0.300-4.500) uIu/ml Imaging Data Radiologist's Impression: XR chest 2V routine HISTORY: 58 years-old Female Chest pain acute atypical chest pain COMPARISON: Chest and rib radiographs 07/27/2017 TECHNIQUE: PA and lateral views of the chest FINDINGS: Cardiac mediastinal and hilar silhouettes appear unchanged. Moderate sized hiatal hernia. Surgical clip projects over the left lower neck. No pneumothorax , pleural effusion, focal airspace consolidation or overt pulmonary edema. 2.2 cm calcification about the right greater tuberosity suggest rotator cuff calcific tendinosis or calcific bursitis. Degenerative changes of the shoulders and spine. Surgical clips project over the abdominal right upper quadrant. IMPRESSION: No acute process. ECG Data Additional Comments: Normal sinus rhythm @74 bpm Normal ECG When compared with ECG of 27-JUL-2017 13:12, No significant change was found MDM Narrative Physical exam and history were performed. Nursing notes, EMR, and Medication List were personally reviewed. Patient appears to have left-sided chest discomfort for the past 90 minutes. On examination the patient is holding her left side chest wall with her right hand. EKG was performed and is as above. IV access was established and labs were obtained. Chest x-ray was performed. The patient was given aspirin and 1 inch Nitropaste. The patient's blood work is as above and was reviewed. She does not have a significantly elevated white blood cell count, gross anemia, bandemia, or significant electrolyte imbalance. Lipase and transaminases are not diagnostic. Troponin and d-dimer x1 are both negative. Chest x-ray was reviewed by myself and radiology as showing no acute process. On reevaluation the patient did not have any improvement of her pain with aspirin and Nitropaste. She was given IV morphine. Overall the patient does not appear well for discharge home. Her case was discussed with the on-call hospitalist, who agreed to evaluate the patient here in the department. Please see their dictation for further patient course, plan, and disposition. The chart was completed utilizing [employer] Speech Voice Recognition Software. Grammatical errors, random word insertions, pronoun errors, and incomplete sentences are an occasional consequence of this system due to software limitations, ambient noise, and hardware issues. Any formal questions or concerns about the content, text, or information contained within the body of this dictation should be directly addressed to the provider for clarification. . Impression & Plan Left sided chest pain Discharge Plan Visit Data *Final* Discharge Date/Time: 03/05/18 04:35 Chief Complaint: Cardiac Assessment Stated Complaint: CHEST DISCOMFORT ED Provider: May Betancourt ED Midlevel Provider: [place] Discharge Problem: Left sided chest pain Patient Disposition: Admitted As Inpatient Discharge Instructions Interventions: ED Discharge Assessment Last Done: 03/05/18 04:35
[2018-03-05 07:14] LABS: Estimated Average Glucose 123 mg/dl
[2018-03-05] MEDS ORDERED: PANTOprazole 40 MG TAB PO SCH (09:00)
[2018-03-05] MEDS ORDERED: POTASSIUM CHLORIDE 20 MEQ TABCR PO SCH (09:00)
[2018-03-05] MEDS ORDERED: AMLODIPINE BESYLATE 5 MG TAB PO SCH (09:00)
[2018-03-05] MEDS ORDERED: CYANOCOBALAMIN 500 MCG TABLET (VITAMIN B-12) PO SCH (09:00)
[2018-03-05] MEDS ORDERED: METOPROLOL TARTRATE 1 MG/ML VIAL IV ONE ×2 (13:15→13:16)
[2018-03-05] MEDS ORDERED: ATROPINE SULFATE 0.1 MG/ML 10ML SYR IV ONE ×2 (13:15→13:16)
[2018-03-05] MEDS ORDERED: DOBUTamine HCL 12.5 MG/ML 20 ML VIAL IV ONE (13:15)
--- NOTE | 2018-03-05 16:43 | Hospitalist Progress Note ---
Date of Service March 05, 2018 Assessment & Plan (1) Chest pain: (2) Asthma: (3) Gastropathy: (4) Rheumatoid arthritis: (5) Hypertension: 58-year-old female with past medical history significant for benign essential hypertension, rheumatoid arthritis on Enbrel, asthma, hypokalemia, osteoporosis, reflux, gastropathy admitted to the hospital because of chest pain rule out ACS, chest pain rule out ACS, -Cardiac origin versus costochondritis versus reflux disease versus esophageal spasm -We will trend troponins. 2 set of cardiac enzymes troponin were negative, ordered a dobutamine stress echo tomorrow to rule off ACS, -Continue monitor on telemetry -Lipids, A1c : A1c 5.9, total cholesterol 149, triglyceride 43, LDL 92 HDL 48,, past medical history significant for benign essential hypertension, rheumatoid arthritis on Enbrel, asthma, hypokalemia, osteoporosis, reflux, gastropathy, stable continue current medication: DVT prophylaxis covered, Subjective Normal chest pain, no complaint, Feeling generalized weakness and tired, because of no sleep whole night last night, Review of Systems Constitutional: negative weakness, or fatigue Respiratory: no cough, sputum, wheezing, or dyspnea on exertion Cardiac: No chest pain, No orthopnea, No PND, No claudication, No palpitations , Abdomen: No pain, No nausea, No vomiting, No diarrhea, No constipation, No GI bleeding Musculoskeletal: Mild joint pain which is not new, No muscle pain, No swelling, No calf pain, No problem reported : No dysuria, No urinary frequency, No incontinence, No hematuria Neurologic: No paralysis, No weakness, No numbness/tingling, No vertigo, No balance problems Psychiatric: No depression symptoms, No anhedonism, No anxiety, No insomnia, No substance abuse Heme: No abnormal bleeding/bruising, No clotting problems, No swollen lymph nodes, No night sweats Skin: No rash, No itch, No new/changing skin lesions, No color change, No bleeding Physical Exam 2 Vital Signs (Past 24 Hours): Last Vital Signs Temp 37.4 C 03/05/18 15:26 Pulse 62 03/05/18 15:26 Resp 17 03/05/18 15:26 BP 102/64 03/05/18 15:26 Pulse Ox 95 03/05/18 15:26 Physical Exam: General Appearance: WD/WN, no apparent distress, mild pale, Eyes: normal inspection, PERRL, EOMI, sclerae normal ENT: normal ENT inspection, hearing grossly normal, pharynx normal Neck: supple, no adenopathy, thyroid normal, no JVD, no carotid bruits, trachea midline Respiratory/Chest: chest non-tender, normal breath sounds, no respiratory distress, no accessory muscle use, breath sounds, rales, wheezing Cardiovascular: regular rate, rhythm, no JVD, no murmur Abdomen: normal bowel sounds, non tender, soft, no organomegaly, Extremities: normal range of motion, non-tender, normal inspection, no pedal edema, no calf tenderness, normal capillary refill , pelvis stable, joint has no limited range of motion, capillary refill is normal, no cyanosis clubbing Neurologic/Psychiatric: resident in diagnostic radiology II-XII nml as tested, no motor/sensory deficits, alert, normal mood/affect, oriented x 3 Skin: normal color, warm/dry, no rash Lymphatic: no adenopathy Results & Data Laboratory Results Laboratory Results - last 24 hr 03/05/18 03/05/18 03/05/18 01:55 01:55 01:55 WBC 6.34 RBC 4.80 Hgb 13.6 Hct 40.8 MCV 85.0 MCH 28.3 MCHC 33.3 RDW Std Deviation 41.2 RDW Coeff of Rosi 13.4 Plt Count 252 MPV 11.7 H Immature Gran % (Auto) 0.0 Neut % (Auto) 36.0 Lymph % (Auto) 48.7 Charles % (Auto) 11.2 Eos % (Auto) 3.3 Baso % (Auto) 0.8 Immature Gran # (Auto) 0.00 Neut # (Auto) 2.28 Lymph # (Auto) 3.09 Charles # (Auto) 0.71 H Eos # (Auto) 0.21 Baso # (Auto) 0.05 PT 9.9 INR 1.0 APTT 23.2 PTT Ratio 0.9 D-Dimer 290 Sodium 142 Potassium 3.5 Chloride 109 H Carbon Dioxide 28 Anion Gap 5.0 BUN 22 H Creatinine 0.65 Est Cr Clr Drug Dosing 87.6 Est GFR ( Amer) 111.8 Est GFR (Non-Af Amer) 96.5 BUN/Creatinine Ratio 33.7 H Glucose 119 H Estimat Average Glucose Hemoglobin A1c Calcium 9.3 Magnesium 2.2 Total Bilirubin 0.3 AST 18 ALT 23 Alkaline Phosphatase 76 Total Creatine Kinase 237 H CK-MB (CK-2) 4.1 H CK/CKMB % Calc 1.7 Troponin I < 0.015 Total Protein 7.8 Albumin 4.0 Globulin 3.8 Albumin/Globulin Ratio 1.1 Triglycerides Cholesterol LDL Cholesterol, Calc VLDL Cholesterol, Calc HDL Cholesterol Cholesterol/HDL Ratio Lipase 245 TSH 2.120 03/05/18 03/05/18 03/05/18 05:42 05:42 07:44 WBC RBC Hgb Hct MCV MCH MCHC RDW Std Deviation RDW Coeff of Rosi Plt Count MPV Immature Gran % (Auto) Neut % (Auto) Lymph % (Auto) Charles % (Auto) Eos % (Auto) Baso % (Auto) Immature Gran # (Auto) Neut # (Auto) Lymph # (Auto) Charles # (Auto) Eos # (Auto) Baso # (Auto) PT INR APTT PTT Ratio D-Dimer Sodium Potassium Chloride Carbon Dioxide Anion Gap BUN Creatinine Est Cr Clr Drug Dosing Est GFR ( Amer) Est GFR (Non-Af Amer) BUN/Creatinine Ratio Glucose Estimat Average Glucose 123 Hemoglobin A1c 5.9 H Calcium Magnesium Total Bilirubin AST ALT Alkaline Phosphatase Total Creatine Kinase CK-MB (CK-2) CK/CKMB % Calc Troponin I < 0.015 Total Protein Albumin Globulin Albumin/Globulin Ratio Triglycerides 43 Cholesterol 149 LDL Cholesterol, Calc 92 VLDL Cholesterol, Calc 9 HDL Cholesterol 48 Cholesterol/HDL Ratio 3 Lipase TSH 03/05/18 15:49 WBC RBC Hgb Hct MCV MCH MCHC RDW Std Deviation RDW Coeff of Rosi Plt Count MPV Immature Gran % (Auto) Neut % (Auto) Lymph % (Auto) Charles % (Auto) Eos % (Auto) Baso % (Auto) Immature Gran # (Auto) Neut # (Auto) Lymph # (Auto) Charles # (Auto) Eos # (Auto) Baso # (Auto) PT INR APTT PTT Ratio D-Dimer Sodium Potassium Chloride Carbon Dioxide Anion Gap BUN Creatinine Est Cr Clr Drug Dosing Est GFR ( Amer) Est GFR (Non-Af Amer) BUN/Creatinine Ratio Glucose Estimat Average Glucose Hemoglobin A1c Calcium Magnesium Total Bilirubin AST ALT Alkaline Phosphatase Total Creatine Kinase CK-MB (CK-2) CK/CKMB % Calc Troponin I < 0.015 Total Protein Albumin Globulin Albumin/Globulin Ratio Triglycerides Cholesterol LDL Cholesterol, Calc VLDL Cholesterol, Calc HDL Cholesterol Cholesterol/HDL Ratio Lipase TSH
--- NOTE | 2018-03-05 17:18 | Discharge Summary ---
Date of Service March 05, 2018 Admission HPI Per Admitting Provider Rose is a 58-year-old female with past medical history significant for benign essential hypertension, rheumatoid arthritis on Enbrel, asthma, hypokalemia, osteoporosis, reflux, gastropathy who presents with chest pain. She states the pain awoke her from sleep earlier this evening, was located on the left side with some radiation to her left shoulder, substernal,"felt like a cramp", made worse by breathing deeply, made better by positional changes, lasted 1 hour and would not self resolve so she drove herself to the emergency room. 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 She states she was lifting heavy packages earlier today, but this is not abnormal for her. Patient states she does see her PCP regularly yearly and is up-to-date on all her preventive medicine. She had a similar episode in 2014 and was admitted. Echo done then revealed normal ejection fraction and no wall abnormalities. Unsure if she did her stress test. ED course: Troponin x1 normal, Nitropaste and morphine given, aspirin given, Zofran given, 1 L saline given. CBC unremarkable. PT/INR normal. D-dimer normal. BMP unremarkable. CK-MB slightly elevated 4.1, lipase and TSH normal. 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 Denies tobacco, drinking or drugs. Principal Diagnosis no Discharge Data Allergies Allergy/AdvReac Type Severity Reaction Status Date / Time doxycycline AdvReac Severe VOMITING Verified 10/22/17 14:49 Consultations 03/05/18 02:59 ED Decision to Admit Stat Hospital Course (1) Chest pain: (2) Asthma: (3) Gastropathy: Continue home Protonix scheduled -Consider follow-up with gastroenterology on an outpatient basis (4) Rheumatoid arthritis: (5) Hypertension: 58-year-old female with past medical history significant for benign essential hypertension, rheumatoid arthritis on Enbrel, asthma, hypokalemia, osteoporosis, reflux, gastropathy admitted to the hospital because of chest pain rule out ACS, chest pain rule out ACS, -Cardiac origin versus costochondritis versus reflux disease versus esophageal spasm -We will trend troponins. 2 set of cardiac enzymes troponin were negative, ordered a dobutamine stress echo tomorrow to rule off ACS, -Continue monitor on telemetry -Lipids, A1c : A1c 5.9, total cholesterol 149, triglyceride 43, LDL 92 HDL 48,, past medical history significant for benign essential hypertension, rheumatoid arthritis on Enbrel, asthma, hypokalemia, osteoporosis, reflux, gastropathy, stable continue current medication: DVT prophylaxis covered, Patient was able to have stress echo done which was negative, essentially rule out ACS, therefore I able to discharge home, recommend start aspirin 81 mg p.o. daily, and follow-up with PCP, patient understand and agreed Total Time Total Time Spent Total Time Spent (In Minutes): 31 Total Time Includes: Examination of the Patient, Discharge Planning, Medication Reconciliation and Communication With Other Providers Discharge Plan Discharge Items Patient Disposition: Home - Self-Care Reason For Visit: CHEST PAIN Discharge Diagnosis: Chest pain has rule out ACS Discharge Goals: Decrease discomfort, Diagnostic testing, Improve disease control and Improve function Activity: Resume your previous activity Non-emergency contact: Primary Care Provider Call non-emergency contact if: you have any medication questions, your symptoms worsen and your pain is unusual for you Diet: Heart Healthy Addtl Provider Instructions: You have chest pain likely atypical chest pain from muscle chest pain rule out ACS, dobutamine stress echo were negative, D-dimer checked were negative -Lipids, A1c : A1c 5.9, total cholesterol 149, triglyceride 43, LDL 92 HDL 48,, you need to follow up with your primary care physician in 1 week, - take medication as instructed, never overdose or any misuse, or take with alcohol, because misuse of medicine may cause organ damage or , call me , or your primary care physician if have questions of discharge medicaitons. - call your primary care physician, or go to local emergency room if has any fever/chill, chest pain, shortness of breathing, nausea/vomiting/abdominal pain , facial droop/slurry speech/local weakness, or if has any questions. - fall precaution - diet as instructed Prescriptions: New aspirin [Ecotrin Low Strength] 81 mg Tablet,Delayed Release (Dr/Ec) 81 mg PO QAM 30 Days Qty: 30 RF: 0 Continue cyanocobalamin (vitamin B-12) 1,000 mcg Tablet 1,000 mcg PO DAILY RF: 0 amlodipine 5 mg tablet 5 mg PO DAILY RF: 0 potassium chloride [Klor-Con M20] 20 mEq tablet,ER particles/crystals 20 meq PO DAILY RF: 0 pantoprazole 40 mg tablet,delayed release (DR/EC) 40 mg PO DAILY RF: 0 ergocalciferol (vitamin D2) [Drisdol] 50,000 unit Capsule 50,000 unit PO DAILY RF: 0 albuterol sulfate [Ventolin HFA] 90 mcg/actuation HFA aerosol inhaler 2 puff Inhalation UD PRN (Reason: Shortness Of Breath Or Wheezing) RF: 0 etanercept [Enbrel] 50 mg/mL (0.98 mL) cartridge 50 mg subcut WK RF: 0 Stand-Alone Forms: [facility] Discharge Orders: Discharge Order (Routine); Ordered 03/05/18 Ordered By: Roque Navarrete Admission Data Admit Date/Time: 03/05/18 03:57 Attending Provider: Roque Navarrete Admit Provider: Vee Nunn Primary Care Provider: Amairani Simmons Other Providers: Adrian Roque Service: Telemetry
[2018-03-06] MEDS ORDERED: ASPIRIN 81 MG ECTAB PO SCH (09:00)
== END 2018-03-05 17:59 | disposition home or self-care (01) ==
LOC: 2S 01:39 → ED 01:39 → SUATTDRO 03:57 → 2S 04:35

== ENCOUNTER 2022-04-27 19:01 | Observation (INO) ==
[2022-04-27] MEDS ORDERED: NITROGLYCERIN SL 0.4 MG/TAB TAB SL PRN (19:22)
--- NOTE | 2022-04-27 19:26 | Emergency Department Note ---
Impression & Plan Chest pain, Hypertension ED Provider Note NAME: ISRAEL GIRARD AGE: 62 SEX: F : 1960 ARRIVES VIA: Walk-In INFORMANT: Patient ED PROVIDER(S): Carlos Enrique Hart DO CHIEF COMPLAINT: chest pain HPI: Patient is a 62-year-old female with a past medical history of CAD, aortic regurg as well as ascending aortic dilation, prediabetes, hypertension, asthma and anxiety who presents to the ER for midsternal chest pain which has been coming and going since Monday worse with exertion. She does get some shortness of breath with it. Gets bilateral arm pain. Pain does radiate th rough to the back. No belly pain, nausea, vomiting, or diarrhea. No dysuria, urgency, or frequency. No other exacerbating or remitting factors. PAST MEDICAL HISTORY:See Below PAST SURGICAL HISTORY:See Below FAMILY HISTORY:See Below SOCIAL HISTORY:See Below HOME MEDICATIONS:See Below ALLERGIES:See Below VITALS:See Below PHYSICAL EXAMINATION: GENERAL: Sitting up in bed, alert, well appearing, well nourished, no distress, non-toxic EYE EXAM: normal conjunctiva. OROPHARYNX: no exudate, no erythema, lips, buccal mucosa, and tongue normal and mucous membranes are moist NECK: supple, no nuchal rigidity, no adenopathy, non-tender LUNGS: Clear to auscultation. Normal chest wall mechanics HEART: no murmurs, S1 normal and S2 normal ABDOMEN: abdomen soft, non-tender, normo-active bowel sounds, no masses, no rebound or guarding. UPPER EXTREMITIES: upper extremities are grossly normal. LOWER EXTREMITIES: No pitting edema. NEURO EXAM: Normal sensorium, cranial nerves II-XII grossly intact, normal speech, no gross weakness of arms, no gross weakness of legs. MEDICAL DECISION MAKING: Patient is a 62-year-old female who presents the ER for above-stated complaint. IV was established blood work was obtained. External records were reviewed. Labs show no significant leukocytosis or anemia. BMP with slightly elevated chloride. LFTs bilirubin was unremarkable. Troponin was negative. Lipase unremarkable. COVID-negative. Patient was given aspirin and nitro. CT angio of the chest showed no dissection and was performed with a history of a sending aortic aneurysm and chest pain going through to the back and bilateral arm pain. With her history of CAD, prediabetes patient was discussed with the hospitalist for further observation overnight with exertional chest pain intermittently over the past several days. Triage Nursing notes reviewed. Limited review of prior medical records performed Vital Signs: reviewed and remarkable for HTN Differential diagnosis: Cardiac ischemia, aortic dissection, pulmonary embolism, pneumothorax, pneumonia, pericarditis, myocarditis, esophageal rupture, GERD, cholecystitis, pancreatitis, musculoskeletal, as well as other pathologies. ER treatment provided: See below Diagnostics interpreted by me include EKG and cardiac monitoring as listed b elow: -Cardiac Monitoring: An order was placed for continuous cardiac monitoring. The monitor shows a rate of 80 with sinus rhythm. -ECG: Sinus rhythm at 81 Normal axis Poor baseline T wave inversion in V3 with poor baseline in V4 and V5 QTc 432 No significant change from previous -Laboratory studies:Interpreted by me as stated above in MDM and shown below. Imaging studies: Xrays: As interpreted by me: Portable AP upright 1 view of the chest shows no pneumonia CTs show: CT angio shows no dissection Consultation(s): Discussed with the department for further evaluation management and treatment Procedures:none Critical Care: None Past Med/Surg History Medical History Acid reflux disease Anemia hx Anxiety Ascending aorta dilation follows with Dr Jaime Asthma well controlled Atypical chest pain B12 deficiency Environmental and seasonal allergies Gastropathy Hiatal hernia History of anesthesia reaction during knee arthroscopy pt states her BP dropped--no other issues besides nausea/vomiting Hypertension Nausea and vomiting after administration of anesthetic agent Nontoxic multinodular goiter Osteoarthritis Osteoporosis Paroxysmal atrial tachycardia hx - no problems currently. Pre-diabetes monitoring Rheumatoid arthritis Vitamin D deficiency Surgical History H/O arthroscopic knee surgery (~06/2006) left knee 06/2006 right knee 2007 H/O breast surgery cyst removal H/O lithotripsy x 2 1994 H/O partial thyroidectomy 2011 History of colonoscopy 01/2019 History of esophagogastroduodenoscopy (EGD) History of incision and drainage right 3rd finger 2013 S/P cholecystectomy 1990 S/P dilation and curettage Family History Father Diabetes Osteoporosis Arthritis Hypertension Mother Arthritis Hypertension Grandmother (Paternal) Asthma Aunt Breast cancer paternal Sister Cancer of kidney Other No family history of adverse response to anesthesia Denies family history of Ovarian cancer Prostate cancer Lung cancer Colorectal cancer Social History Smoking Status: Never smoker Second Hand Exposure: No; Hx Alcohol Use: No Hx Substance Use: No Preferred Language: Filipino Communication Ability: Effective Visual Impairment: No Limitations Hearing Ability: Normal Cafeteria Or Lunchroom Checker Required: No Beliefs That Will Affect Care: None marital status: Current Living Situation: Alone current occupational status: employed current occupation: [employer] Feels Safe at Home: Yes Safety Concerns: Feels Safe At This Time Childhood Exposure to Second-Hand Smoke: No Diet Comment: regular caffeine: No during the past year weight has: remained stable Dental Care, Regularly: No Physical Activity Frequency: 5-6 Times per Week Physical Activity Frequency Comment: at work Seatbelt Use: always Sunscreen Use: No Assistive Devices: Denture - Upper Allergies Allergies Allergy/AdvReac Type Severity Reaction Status Date / Time doxycycline AdvReac Intermediate Vomiting Verified 04/27/22 19:48 omeprazole AdvReac Intermediate Diarrhea Verified 04/27/22 19:48 Home Meds Home Medications Medication Instructions Recorded Confirmed etanercept 50 mg/mL (1 mL) 50 mg subcut WK 02/26/19 04/27/22 subcutaneous cartridge (Enbrel Mini) Previous Rx's Medication Instructions Recorded hydroxyzine pamoate 25 mg capsule 25 mg PO TID PRN anxiety #30 caps 10/27/21 (Vistaril) telmisartan 20 mg tablet 20 mg PO QAM #90 tabs 12/02/21 cholecalciferol (vitamin D3) 1,250 50,000 unit PO UD #9 caps 12/21/21 mcg (50,000 unit) capsule fluticasone propionate 50 2 spray intranasal DAILY allergy 12/27/21 mcg/actuation nasal symptoms #48 grams spray,suspension (Flonase Allergy Relief) albuterol sulfate 90 mcg/actuation 2 puff inhalation .COMPLEX PRN 12/28/21 aerosol inhaler Shortness Of Breath Or Wheezing #18 grams atorvastatin 40 mg tablet 40 mg PO HS #90 tabs 01/18/22 aspirin 81 mg tablet,delayed 81 mg PO QAM #90 tabs 02/28/22 release pantoprazole 40 mg tablet,delayed 40 mg PO DAILY #90 tabs 02/28/22 release potassium chloride 20 mEq 20 meq PO QAM #90 tabs 03/21/22 tablet,extended release(part/cryst) amlodipine 5 mg tablet 5 mg PO QAM #90 tabs 03/28/22 Results & Data (ED) Vital Signs Vital Signs - 24 hr 04/27/22 19:02 04/27/22 19:11 04/27/22 19:27 Temperature 37.3 C Temperature Source Temporal Artery Scan Pulse Rate 84 80 Respiratory Rate 16 Respiratory Effort / Characteristics Non-Labored Spontaneous Respiratory Depth Normal Blood Pressure 155/83 H Blood Pressure Mean 107 Pulse Oximetry 98 97 Oxygen Delivery Method Room Air Room Air Sepsis Recent Fever Within 48 Hours No Sepsis New/Unexplained Change in Mental Status No Sepsis Action Taken by Nursing No Action Required 04/27/22 19:30 04/27/22 20:00 04/27/22 21:00 Temperature Temperature Source Pulse Rate 85 74 73 Respiratory Rate 12 15 17 Respiratory Effort / Characteristics Respiratory Depth Blood Pressure 159/93 H 134/81 136/88 Blood Pressure Mean 115 98 104 Pulse Oximetry 99 96 97 Oxygen Delivery Method Sepsis Recent Fever Within 48 Hours Sepsis New/Unexplained Change in Mental Status Sepsis Action Taken by Nursing 04/27/22 21:30 Temperature Temperature Source Pulse Rate 69 Respiratory Rate 13 Respiratory Effort / Characteristics Respiratory Depth Blood Pressure 138/81 Blood Pressure Mean 100 Pulse Oximetry 97 Oxygen Delivery Method Sepsis Recent Fever Within 48 Hours Sepsis New/Unexplained Change in Mental Status Sepsis Action Taken by Nursing Laboratory Data 04/27/22 19:19 04/27/22 19:19 Lab Results 04/27/22 04/27/22 04/27/22 Range/Units 19:16 19:19 19:19 WBC 7.19 (4.8-10.8) K/ul RBC 4.64 (4.20-5.40) M/uL Hgb 12.5 (12.0-16.0) g/dl Hct 38.2 (37.0-47.0) % MCV 82.3 (80.0-100.0) fL MCH 26.9 (25.0-34.0) pg MCHC 32.7 (32.0-36.0) g/dL RDW Std Deviation 41.8 (36.4-46.3) fL RDW Coeff of Rosi 14.0 (11.5-14.5) % Plt Count 185 (130-400) K/uL MPV 12.7 H (9.4-12.4) fL Immature Gran % (Auto) 0.3 % Neut % (Auto) 39.9 % Lymph % (Auto) 46.7 % [place] % (Auto) 7.5 % Eos % (Auto) 4.5 % Baso % (Auto) 1.1 % Neut # (Auto) 2.87 (1.40-6.50) K/uL Lymph # (Auto) 3.36 (1.2-3.4) K/uL [place] # (Auto) 0.54 (0.11-0.59) K/uL Eos # (Auto) 0.32 (0-0.50) K/uL Baso # (Auto) 0.08 (0-0.2) K/uL Immature Gran # (Auto) 0.02 (0.01-0.20) K/uL Toxic Vacuolation 1+ Sodium 141 (136-145) mmol/L Potassium 3.8 (3.5-5.1) mmol/L Chloride 109 H (98-107) mmol/L Carbon Dioxide 24 (21-32) mmol/L Anion Gap 8 (3-11) BUN 20 (6-23) mg/dl Creatinine 0.73 (0.6-1.2) mg/dl Est Cr Clr Drug Dosing 75.6 ml/min Est GFR ( Amer) 100.9 ml/min Est GFR (Non-Af Amer) 87.0 ml/min BUN/Creatinine Ratio 27.4 H (10-20) Glucose 144 H (70-99(Fasting)) mg/dl Calcium 9.8 (8.6-10.3) mg/dl Total Bilirubin 0.4 (0.2-1.0) mg/dl AST 17 (13-39) U/L ALT 15 (7-52) U/L Alkaline Phosphatase 77 (34-104) U/L Troponin I High Sens 3.7 (0-14) pg/ml Total Protein 7.1 (6.0-8.3) gm/dl Albumin 4.4 (3.4-5.0) gm/dl Globulin 2.7 (2.5-4.0) gm/dl Albumin/Globulin Ratio 1.6 (0.9-2) Lipase 58 (11-82) U/L SARS-CoV-2, RNA, NAAT NEGATIVE (NEGATIVE) Administered Medications Discontinued Medications Aspirin (Aspirin Chew 324 Mg) 324 mg PO NOW STA Stop: 04/27/22 20:55 Last Admin: 04/27/22 21:00 Dose: 324 mg Documented By: KARIME Ioversol (Optiray 320 500ml) 113 ml IV ONCE ONE Stop: 04/27/22 20:42 Last Admin: 04/27/22 20:42 Dose: 113 ml Documented By: DOT Imaging Data Radiologist's Impression: Chest CTA 04/27/22 19:22 Exam(s): CTA CHEST W/WO Contrast EXAM: CT Angiography Chest Without and With Intravenous Contrast CLINICAL HISTORY: Reason for exam: mid sternal cp. TECHNIQUE: Axial computed tomographic angiography images of the chest without and with intravenous contrast. CTDI is 6.7 mGy and DLP is 228.45 mGy-cm. Automated exposure control was utilized for the study. A dose lowering technique was utilized adhering to the principles of ALARA. MIP reconstructed images were created and reviewed. CONTRAST: Contrast must be dictated COMPARISON: 03/03/2022. FINDINGS: Pulmonary arteries: Unremarkable. No pulmonary embolism. Normal enhancement of the pulmonary arteries. Aorta: Atherosclerotic disease of aorta with tortuosity. No aneurysm or dissection. Lungs: Trace posterior dependent and lower lobe atelectasis, otherwise normal lung parenchyma. No mass. Pleural space: Unremarkable. No pleural effusion or pneumothorax. Heart: Unremarkable. No significant pericardial effusion. No evidence of RV dysfunction. Normal cardiac size. Mediastinum: Large hiatal hernia. Thyroid: Nonvisualized left thyroid lobe suggestive of previous partial thyroidectomy. Bones/joints: Degenerative disease of the spine. No acute fracture or subluxation. Soft tissues: Unremarkable. Lymph nodes: Unremarkable. No enlarged lymph nodes. Gallbladder and bile ducts: Status post cholecystectomy with no biliary distention. Remainder of the visualized upper abdominal viscera unremarkable. IMPRESSION: 1. No pulmonary embolus or aortic dissection. 2. Mild posterior dependent atelectasis, otherwise no acute cardiopulmonary disease. 3. Large hiatal hernia. Electronically signed by: Tessie Galarza MD 04/27/22 21:31 PM Discharge Plan Visit Data Chief Complaint: Chest Pain Stated Complaint: CHEST PAIN,BACK ACHE,SOB ED Provider: Carlos Enrique Hart Discharge Problem: Chest pain, Hypertension Patient Disposition: Admitted As Inpatient Discharge Instructions Interventions: ED Discharge Assessment Last Done: 04/27/22 22:29
[2022-04-27 20:02] LABS: Albumin Globulin Ratio 1.6 (0.9-2); Albumin Level 4.4 gm/dl (3.4-5.0); BUN Creatinine Ratio 27.4 (10-20); Bilirubin,Total 0.4 mg/dl (0.2-1.0); Calcium 9.8 mg/dl (8.6-10.3); Creatinine Clr Calc Pharmacy 75.6 ml/min; Est GFR (African American) 100.9 ml/min; Globulin 2.7 gm/dl (2.5-4.0); Potassium 3.8 mmol/L (3.5-5.1); Total Protein 7.1 gm/dl (6.0-8.3)
[2022-04-27 20:08] LABS: Troponin I High Sensitivity 3.7 pg/ml (0-14)
[2022-04-27 20:29] LABS: Hematocrit (blood only) 38.2 % (37.0-47.0); Hemoglobin 12.5 g/dl (12.0-16.0); Mean Corpuscular Hemoglobin 26.9 pg (25.0-34.0); Mean Corpuscular Hgb Conc 32.7 g/dL (32.0-36.0); Mean Corpuscular Volume 82.3 fL (80.0-100.0); Mean Platelet Volume 12.7 fL (9.4-12.4); Platelet Count 185 K/uL (130-400); RDW Standard Deviation 41.8 fL (36.4-46.3); Red Blood Count 4.64 M/uL (4.20-5.40); White Blood Count 7.19 K/ul (4.8-10.8)
[2022-04-27 20:30] LABS: Basophils # (auto) 0.08 K/uL (0-0.2); Basophils % (auto) 1.1 %; Eosinophils # (auto) 0.32 K/uL (0-0.50); Eosinophils % (auto) 4.5 %; Immature Granulocytes # (auto) 0.02 K/uL (0.01-0.20); Immature Granulocytes % (auto) 0.3 %; Lymphocytes # (auto) 3.36 K/uL (1.2-3.4); Lymphocytes % (auto) 46.7 %; Monocytes # (auto) 0.54 K/uL (0.11-0.59); Monocytes % (auto) 7.5 %; Neutrophils # (auto) 2.87 K/uL (1.40-6.50); Neutrophils % (auto) 39.9 %; Toxic Vacuolation 1+
[2022-04-27] MEDS ORDERED: OPTIRAY 320 500ml IV ONE (20:41)
[2022-04-27] MEDS ORDERED: ASPIRIN CHEW 324 MG PO STA (20:54)
--- NOTE | 2022-04-27 21:32 | CT Scan Report ---
Exam(s): CTA CHEST W/WO Contrast EXAM: CT Angiography Chest Without and With Intravenous Contrast CLINICAL HISTORY: Reason for exam: mid sternal cp. TECHNIQUE: Axial computed tomographic angiography images of the chest without and with intravenous contrast. CTDI is 6.7 mGy and DLP is 228.45 mGy-cm. Automated exposure control was utilized for the study. A dose lowering technique was utilized adhering to the principles of ALARA. MIP reconstructed images were created and reviewed. CONTRAST: Contrast must be dictated COMPARISON: 03/03/2022. FINDINGS: Pulmonary arteries: Unremarkable. No pulmonary embolism. Normal enhancement of the pulmonary arteries. Aorta: Atherosclerotic disease of aorta with tortuosity. No aneurysm or dissection. Lungs: Trace posterior dependent and lower lobe atelectasis, otherwise normal lung parenchyma. No mass. Pleural space: Unremarkable. No pleural effusion or pneumothorax. Heart: Unremarkable. No significant pericardial effusion. No evidence of RV dysfunction. Normal cardiac size. Mediastinum: Large hiatal hernia. Thyroid: Nonvisualized left thyroid lobe suggestive of previous partial thyroidectomy. Bones/joints: Degenerative disease of the spine. No acute fracture or subluxation. Soft tissues: Unremarkable. Lymph nodes: Unremarkable. No enlarged lymph nodes. Gallbladder and bile ducts: Status post cholecystectomy with no biliary distention. Remainder of the visualized upper abdominal viscera unremarkable. IMPRESSION: 1. No pulmonary embolus or aortic dissection. 2. Mild posterior dependent atelectasis, otherwise no acute cardiopulmonary disease. 3. Large hiatal hernia. Electronically signed by: Tessie Galarza MD 04/27/22 21:31 PM
--- NOTE | 2022-04-27 21:40 | History & Physical Report ---
Date of Service April 27, 2022 Assessment & Plan (1) Chest pain: Plan: 62yo female with history of stable ascending aortic dilation, coronary artery calcification, HTN and RA presenting with 5 days of substernal chest discomfort with radiation into the back and bilateral arms. She also notes some increased MOORE and nausea today. Troponin is unremarkable at 3.7 --> 4.1 EKG with non-specific changes Chest pain is largely reproducible. Suspect musculoskeletal most likely source. However, given known coronary calcifications, h/o HTN will observe overnight -Observation to medical with telemetry -Trend troponin -Order placed for Dobutamine stress test for AM -Continue ASA -Continue Atorvastatin -Tylenol as needed for pain (2) Hypertension: Plan: Blood pressure mildly elevated at present 154/84 -Continue Telmisartan -Continue Amlodipine -Monitor (3) Rheumatoid arthritis: Plan: Patient receives Enbrel - continue as scheduled outpatient (4) Acid reflux disease: Plan: Chronic. Stable -Continue Protonix 40mg po daily F/E/N - Heplock. Electroltyes WNL. NPO for now Ppx - Low risk for DVT Code - Ful per discussion with patient Dispo - Observation for chest pain, trend troponins, stress testing in AM History of Present Illness Chief Complaint: chest pain Primary Care Provider: Amairani Simmons DO Rose Saravia is a 62yo female with history of HTN, GERD and dilated ascending aorta presenting with chest pain. 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 She lifted something heavy on 04/23/22 after which she developed some substernal chest discomfort. Patient had off work on 04/24 and 04/25 and her pain improved. She worked again on 04/26 and 04/27 and had recurrence of the chest pain. Her pain is substernal with radiation into her back. She notes it is largely positional. She reports some increased dyspnea on exertion over the last week as well. Her pain radiates down her arms bilaterally. Patient had some nausea today as well. Patient follows with Cardiology for her dilated ascending aorta which has been stable. She was noted to have coronary artery calcifications and is presently taking statin and ASA. No known history of CAD or NC. No prior NC. She has had stress testing in the past. In the ER she is afebrile, mildly hypertensive, otherwise HD stable. Presently complaining of muscle soreness, still with some chest discomort precipitated by movement. ER Course: ASA Allergies Allergy/AdvReac Type Severity Reaction Status Date / Time doxycycline AdvReac Intermediate Vomiting Verified 04/27/22 19:48 omeprazole AdvReac Intermediate Diarrhea Verified 04/27/22 19:48 Home Medications Medication Instructions Recorded Confirmed Type etanercept 50 mg/mL (1 mL) 50 mg subcut WK 02/26/19 04/27/22 History subcutaneous cartridge (Enbrel Mini) hydroxyzine pamoate 25 mg capsule 25 mg PO TID PRN anxiety #30 caps 10/27/21 04/27/22 Rx (Vistaril) telmisartan 20 mg tablet 20 mg PO QAM #90 tabs 12/02/21 04/27/22 Rx cholecalciferol (vitamin D3) 1,250 50,000 unit PO UD #9 caps 12/21/21 04/27/22 Rx mcg (50,000 unit) capsule fluticasone propionate 50 2 spray intranasal DAILY allergy 12/27/21 04/27/22 Rx mcg/actuation nasal symptoms #48 grams spray,suspension (Flonase Allergy Relief) albuterol sulfate 90 mcg/actuation 2 puff inhalation .COMPLEX PRN 12/28/21 04/27/22 Rx aerosol inhaler Shortness Of Breath Or Wheezing #18 grams atorvastatin 40 mg tablet 40 mg PO HS #90 tabs 01/18/22 04/27/22 Rx aspirin 81 mg tablet,delayed 81 mg PO QAM #90 tabs 02/28/22 04/27/22 Rx release pantoprazole 40 mg tablet,delayed 40 mg PO DAILY #90 tabs 02/28/22 04/27/22 Rx release potassium chloride 20 mEq 20 meq PO QAM #90 tabs 03/21/22 04/27/22 Rx tablet,extended release(part/cryst) amlodipine 5 mg tablet 5 mg PO QAM #90 tabs 03/28/22 04/27/22 Rx Past Med/Surg History Medical History Acid reflux disease Anemia hx Anxiety Ascending aorta dilation follows with Dr Jaime Asthma well controlled Atypical chest pain B12 deficiency Environmental and seasonal allergies Gastropathy Hiatal hernia History of anesthesia reaction during knee arthroscopy pt states her BP dropped--no other issues besides nausea/vomiting Hypertension Nausea and vomiting after administration of anesthetic agent Nontoxic multinodular goiter Osteoarthritis Osteoporosis Paroxysmal atrial tachycardia hx - no problems currently. Pre-diabetes monitoring Rheumatoid arthritis Vitamin D deficiency Surgical History H/O arthroscopic knee surgery (~06/2006) left knee 06/2006 right knee 2007 H/O breast surgery cyst removal H/O lithotripsy x 2 1994 H/O partial thyroidectomy 2011 History of colonoscopy 01/2019 History of esophagogastroduodenoscopy (EGD) History of incision and drainage right 3rd finger 2013 S/P cholecystectomy 1990 S/P dilation and curettage Family History Father Diabetes Osteoporosis Arthritis Hypertension Mother Arthritis Hypertension Grandmother (Paternal) Asthma Aunt Breast cancer paternal Sister Cancer of kidney Other No family history of adverse response to anesthesia Denies family history of Ovarian cancer Prostate cancer Lung cancer Colorectal cancer Social History Smoking Status: Never smoker Second Hand Exposure: No; Hx Alcohol Use: No Hx Substance Use: No Preferred Language: Pakistani Communication Ability: Effective Visual Impairment: No Limitations Hearing Ability: Normal Singing Messenger Required: No Beliefs That Will Affect Care: None marital status: Current Living Situation: Alone current occupational status: employed current occupation: [employer] Feels Safe at Home: Yes Safety Concerns: Feels Safe At This Time Childhood Exposure to Second-Hand Smoke: No Diet Comment: regular caffeine: No during the past year weight has: remained stable Dental Care, Regularly: No Physical Activity Frequency: 5-6 Times per Week Physical Activity Frequency Comment: at work Seatbelt Use: always Sunscreen Use: No Assistive Devices: Denture - Upper Review of Systems Review of Systems: All systems reviewed & are unremarkable except as noted in HPI & below Physical Exam Physical Exam: General: patient resting comfortably, NAD, non-toxic in appearance, AA&O x 4 Skin: warm, dry, intact, no rashes or lesions HEENT: NC/AT, PERRL, EOMI, anicteric sclera, conjunctiva without injection, external ear normal to inspection and nontender, nares patent, moist mucus membranes, dentition intact, no oropharyngeal lesions, neck supple, trachea midline, no LAD, no thyromegaly, no JVD Heart: +S1/S2, regular, no m/r/g, +reproducible chest wall pain Lungs: equal air entry bilaterally, no rales/rhonchi/wheezes Abd: +BS, soft, NT/ND, no masses/organomegaly/ascites Ext: warm, 2+ pulses in UE/LE bilaterally, no clubbing/cyanosis or edema Neuro: nonfocal, patient AA&O x 4, speech intact, no facial droop, moving all extremities on command with equal strength 5/5 Results & Data Results & Data Vital Signs (Past 12 Hours) Vital Signs Temp Pulse Resp BP Pulse Ox O2 Del Method 04/27/22 20:00 74 15 134/81 96 04/27/22 19:30 85 12 159/93 H 99 04/27/22 19:27 80 04/27/22 19:11 97 Room Air 04/27/22 19:02 37.3 C 84 16 155/83 H 98 Room Air Laboratory Results Laboratory Results WBC 7.19 K/ul (4.8-10.8) 04/27/22 19:19 RBC 4.64 M/uL (4.20-5.40) 04/27/22 19:19 Hgb 12.5 g/dl (12.0-16.0) 04/27/22 19:19 Hct 38.2 % (37.0-47.0) 04/27/22 19:19 MCV 82.3 fL (80.0-100.0) 04/27/22 19:19 MCH 26.9 pg (25.0-34.0) 04/27/22 19:19 MCHC 32.7 g/dL (32.0-36.0) 04/27/22 19:19 RDW Std Deviation 41.8 fL (36.4-46.3) 04/27/22 19:19 RDW Coeff of Rosi 14.0 % (11.5-14.5) 04/27/22 19:19 Plt Count 185 K/uL (130-400) 04/27/22 19:19 MPV 12.7 fL (9.4-12.4) H 04/27/22 19:19 Immature Gran % (Auto) 0.3 % 03/22/23 19:19 Neut % (Auto) 39.9 % 04/27/22 19:19 Lymph % (Auto) 46.7 % 04/27/22 19:19 Newton % (Auto) 7.5 % 04/27/22 19:19 Eos % (Auto) 4.5 % 04/27/22 19:19 Baso % (Auto) 1.1 % 04/27/22 19:19 Neut # (Auto) 2.87 K/uL (1.40-6.50) 04/27/22 19:19 Lymph # (Auto) 3.36 K/uL (1.2-3.4) 04/27/22 19:19 Newton # (Auto) 0.54 K/uL (0.11-0.59) 04/27/22 19:19 Eos # (Auto) 0.32 K/uL (0-0.50) 04/27/22 19:19 Baso # (Auto) 0.08 K/uL (0-0.2) 04/27/22 19:19 Immature Gran # (Auto) 0.02 K/uL (0.01-0.20) 04/27/22 19:19 Toxic Vacuolation 1+ 04/27/22 19:19 Sodium 141 mmol/L (136-145) 04/27/22 19:19 Potassium 3.8 mmol/L (3.5-5.1) 04/27/22 19:19 Chloride 109 mmol/L (98-107) H 04/27/22 19:19 Carbon Dioxide 24 mmol/L (21-32) 04/27/22 19:19 Anion Gap 8 (3-11) 04/27/22 19:19 BUN 20 mg/dl (6-23) 04/27/22 19:19 Creatinine 0.73 mg/dl (0.6-1.2) 04/27/22 19:19 Est Cr Clr Drug Dosing 75.6 ml/min 04/27/22 19:19 Est GFR ( Amer) 100.9 ml/min 04/27/22 19:19 Est GFR (Non-Af Amer) 87.0 ml/min 04/27/22 19:19 BUN/Creatinine Ratio 27.4 (10-20) H 04/27/22 19:19 Glucose 144 mg/dl (70-99(Fasting)) H 04/27/22 19:19 Calcium 9.8 mg/dl (8.6-10.3) 04/27/22 19:19 Total Bilirubin 0.4 mg/dl (0.2-1.0) 04/27/22 19:19 AST 17 U/L (13-39) 04/27/22 19:19 ALT 15 U/L (7-52) 04/27/22 19:19 Alkaline Phosphatase 77 U/L (34-104) 04/27/22 19:19 Troponin I High Sens 4.1 pg/ml (0-14) 04/27/22 23:30 Total Protein 7.1 gm/dl (6.0-8.3) 04/27/22 19:19 Albumin 4.4 gm/dl (3.4-5.0) 04/27/22 19:19 Globulin 2.7 gm/dl (2.5-4.0) 04/27/22 19:19 Albumin/Globulin Ratio 1.6 (0.9-2) 04/27/22 19:19 Lipase 58 U/L (11-82) 04/27/22 19:19 SARS-CoV-2, RNA, NAAT NEGATIVE (NEGATIVE) 04/27/22 19:16 Impressions Chest CTA 04/27/22 19:22 Exam(s): CTA CHEST W/WO Contrast EXAM: CT Angiography Chest Without and With Intravenous Contrast CLINICAL HISTORY: Reason for exam: mid sternal cp. TECHNIQUE: Axial computed tomographic angiography images of the chest without and with intravenous contrast. CTDI is 6.7 mGy and DLP is 228.45 mGy-cm. Automated exposure control was utilized for the study. A dose lowering technique was utilized adhering to the principles of ALARA. MIP reconstructed images were created and reviewed. CONTRAST: Contrast must be dictated COMPARISON: 03/03/2022. FINDINGS: Pulmonary arteries: Unremarkable. No pulmonary embolism. Normal enhancement of the pulmonary arteries. Aorta: Atherosclerotic disease of aorta with tortuosity. No aneurysm or dissection. Lungs: Trace posterior dependent and lower lobe atelectasis, otherwise normal lung parenchyma. No mass. Pleural space: Unremarkable. No pleural effusion or pneumothorax. Heart: Unremarkable. No significant pericardial effusion. No evidence of RV dysfunction. Normal cardiac size. Mediastinum: Large hiatal hernia. Thyroid: Nonvisualized left thyroid lobe suggestive of previous partial thyroidectomy. Bones/joints: Degenerative disease of the spine. No acute fracture or subluxation. Soft tissues: Unremarkable. Lymph nodes: Unremarkable. No enlarged lymph nodes. Gallbladder and bile ducts: Status post cholecystectomy with no biliary distention. Remainder of the visualized upper abdominal viscera unremarkable. IMPRESSION: 1. No pulmonary embolus or aortic dissection. 2. Mild posterior dependent atelectasis, otherwise no acute cardiopulmonary disease. 3. Large hiatal hernia. Electronically signed by: Tessie Galarza MD 04/27/22 21:31 PM ECG Additional Comments: EKG with NSR at 81bpm, normal axis, TL=255, QRS=86, KMm=152, non-specific ST changes similar to prior PG Care Time/CCT Total # of Minutes Spent Total Time Spent with Patient: Total time spent is greater than 50% in coordination of care (as documented) at patient's floor/unit and/or counseling patient: Coding Level of Care Code 80596 INT INP/OBS CARE 2/55MIN Diagnoses Chest pain R07.9 Hypertension I10 Rheumatoid arthritis M06.9 Acid reflux disease K21.9 Esophagitis presence: esophagitis presence not specified (4) Acid reflux disease Esophagitis presence: esophagitis presence not specified Qualified Code(s): K21.9 - Gastro-esophageal reflux disease without esophagitis
[2022-04-27] MEDS ORDERED: ONDANSETRON INJ 2 MG/ML 2 ML VIAL IV PRN (22:57)
[2022-04-27] MEDS ORDERED: ACETAMINOPHEN 325 MG TAB PO PRN (22:57)
[2022-04-27] MEDS ORDERED: hydrOXYzine HCl 25 MG TAB PO PRN (22:57)
[2022-04-27] MEDS ORDERED: ALBUTEROL HFA 8 GM INHALER INH PRN (22:57)
[2022-04-28 06:21] LABS: Hematocrit (blood only) 34.7 % (37.0-47.0); Hemoglobin 11.3 g/dl (12.0-16.0); Mean Corpuscular Hgb Conc 32.6 g/dL (32.0-36.0); Mean Corpuscular Volume 82.8 fL (80.0-100.0); Mean Platelet Volume 12.2 fL (9.4-12.4); Platelet Count 225 K/uL (130-400); RDW Standard Deviation 42.5 fL (36.4-46.3); Red Blood Count 4.19 M/uL (4.20-5.40); White Blood Count 4.76 K/ul (4.8-10.8)
[2022-04-28 06:37] LABS: BUN Creatinine Ratio 30.3 (10-20); Creatinine Clr Calc Pharmacy 83.6 ml/min; Est GFR (African American) 108.2 ml/min; Est GFR (Non-African American) 93.4 ml/min; Potassium 3.9 mmol/L (3.5-5.1)
[2022-04-28 06:43] LABS: Troponin I High Sensitivity 3.9 pg/ml (0-14)
--- NOTE | 2022-04-28 07:11 | Hospitalist Progress Note ---
Date of Service April 28, 2022 Assessment & Plan (1) Chest pain: Plan: 62 y/o female with history of stable ascending aortic dilation, coronary artery calcification, HTN and RA presenting with 5 days of substernal chest discomfort with radiation into the back and bilateral arms. She also notes some increased MOORE and nausea today. #Stable ascending aortic dilation #Chest Pain Troponin is unremarkable at 3.7 --> 4.1. EKG with non-specific changes Chest pain is largely reproducible. Suspect musculoskeletal most likely source. However, given known coronary calcifications and history of HTN patient was admitted for obs [] trend trop [] med tele [] dobutamine stress test [] continue ASA and statin therapy [] Tylenol PRN #HTN BP mildly elevated at presentation. On Telmisartan and amlodipine. Continue to monitor #RA On Enbrel outpatient. Continue #GERD Chronic. Stable. Continue Protonix 40mg po daily F/E/N - Heplock. Electroltyes WNL. NPO for now Ppx - Low risk for DVT Code - Ful per discussion with patient Dispo - Observation for chest pain, trend troponins, stress testing in AM (2) Hypertension: (3) Rheumatoid arthritis: (4) Acid reflux disease: Admission and Anticipated Discharge Date Admission Date: April 27, 2022 Physical Exam Physical Exam: General: patient resting comfortably, NAD, non-toxic in appearance, AA&O x 4 Skin: warm, dry, intact, no rashes or lesions HEENT: NC/AT, PERRL, EOMI, anicteric sclera, conjunctiva without injection, external ear normal to inspection and nontender, nares patent, moist mucus membranes, dentition intact, no oropharyngeal lesions, neck supple, trachea midline, no LAD, no thyromegaly, no JVD Heart: +S1/S2, regular, no m/r/g, +reproducible chest wall pain Lungs: equal air entry bilaterally, no rales/rhonchi/wheezes Abd: +BS, soft, NT/ND, no masses/organomegaly/ascites Ext: warm, 2+ pulses in UE/LE bilaterally, no clubbing/cyanosis or edema Neuro: nonfocal, patient AA&O x 4, speech intact, no facial droop, moving all extremities on command with equal strength 5/5 Results & Data Results & Data Vital Signs (Past 12 Hours) Vital Signs Temp Pulse Pulse Resp BP BP Pulse Ox 04/28/22 03:00 36.8 C 62 18 114/70 96 04/27/22 23:58 66 04/27/22 22:52 36.8 C 74 16 154/84 H 97 04/27/22 21:30 69 13 138/81 97 04/27/22 21:00 73 17 136/88 97 04/27/22 20:00 74 15 134/81 96 04/27/22 19:30 85 12 159/93 H 99 04/27/22 19:27 80 O2 Del Method 04/28/22 03:00 Room Air 04/27/22 23:58 04/27/22 22:52 Room Air 04/27/22 21:30 04/27/22 21:00 04/27/22 20:00 04/27/22 19:30 04/27/22 19:27 Laboratory Results 04/28/22 05:39 04/28/22 05:39 Diagnostic Findings Chest X-Ray 04/27/22 19:09 XR chest 1V portable CLINICAL HISTORY: Chest pain, nonspecific TECHNIQUE: Single frontal radiograph of the chest was obtained. Comparison: Comparison is made to chest radiograph 01/05/2022 FINDINGS: No lines and tubes are seen. Cardiomegaly is noted. The aortic arch is calcified. The lungs are clear. No evidence of pleural effusion or pneumothorax. IMPRESSION: No acute chest disease. Chest CTA 04/27/22 19:22 Exam(s): CTA CHEST W/WO Contrast EXAM: CT Angiography Chest Without and With Intravenous Contrast CLINICAL HISTORY: Reason for exam: mid sternal cp. TECHNIQUE: Axial computed tomographic angiography images of the chest without and with intravenous contrast. CTDI is 6.7 mGy and DLP is 228.45 mGy-cm. Automated exposure control was utilized for the study. A dose lowering technique was utilized adhering to the principles of ALARA. MIP reconstructed images were created and reviewed. CONTRAST: Contrast must be dictated COMPARISON: 03/03/2022. FINDINGS: Pulmonary arteries: Unremarkable. No pulmonary embolism. Normal enhancement of the pulmonary arteries. Aorta: Atherosclerotic disease of aorta with tortuosity. No aneurysm or diss ection. Lungs: Trace posterior dependent and lower lobe atelectasis, otherwise normal lung parenchyma. No mass. Pleural space: Unremarkable. No pleural effusion or pneumothorax. Heart: Unremarkable. No significant pericardial effusion. No evidence of RV dysfunction. Normal cardiac size. Mediastinum: Large hiatal hernia. Thyroid: Nonvisualized left thyroid lobe suggestive of previous partial thyroidectomy. Bones/joints: Degenerative disease of the spine. No acute fracture or subluxation. Soft tissues: Unremarkable. Lymph nodes: Unremarkable. No enlarged lymph nodes. Gallbladder and bile ducts: Status post cholecystectomy with no biliary distention. Remainder of the visualized upper abdominal viscera unremarkable. IMPRESSION: 1. No pulmonary embolus or aortic dissection. 2. Mild posterior dependent atelectasis, otherwise no acute cardiopulmonary disease. 3. Large hiatal hernia. (4) Acid reflux disease Esophagitis presence: esophagitis presence not specified Qualified Code(s): K21.9 - Gastro-esophageal reflux disease without esophagitis
--- NOTE | 2022-04-28 07:29 | XRay Report ---
XR chest 1V portable CLINICAL HISTORY: Chest pain, nonspecific TECHNIQUE: Single frontal radiograph of the chest was obtained. Comparison: Comparison is made to chest radiograph 01/05/2022 FINDINGS: No lines and tubes are seen. Cardiomegaly is noted. The aortic arch is calcified. The lungs are clear . No evidence of pleural effusion or pneumothorax. IMPRESSION: No acute chest disease. ACT 112: Negative or not required by law. Electronically signed by: Sylvester Thurman M.D. 04/28/2022 7:28 AM
[2022-04-28] MEDS ORDERED: FLUTICASONE PROPIONATE NA SPR 16 GM BTL SCH (09:00)
[2022-04-28] MEDS ORDERED: LOSARTAN POTASSIUM 25 MG TAB PO SCH (09:00)
[2022-04-28] MEDS ORDERED: PANTOprazole 40 MG TAB PO SCH (09:00)
[2022-04-28] MEDS ORDERED: ASPIRIN 81 MG ECTAB PO SCH (09:00)
[2022-04-28] MEDS ORDERED: amLODIPine BESYLATE 5 MG TAB PO SCH (09:00)
[2022-04-28] MEDS ORDERED: METOPROLOL TARTRATE 1 MG/ML VIAL IV ONE (09:14)
[2022-04-28] MEDS ORDERED: ATROPINE SULFATE 0.1 MG/ML 10ML SYR IV ONE (09:14)
[2022-04-28] MEDS ORDERED: DOBUTamine HCL 12.5 MG/ML 20 ML VIAL IV ONE (09:14)
[2022-04-28] MEDS ORDERED: NITROGLYCERIN SL 0.4 MG/TAB TAB ONE (09:15)
[2022-04-28 11:39] VITALS: BP 123/75; TEMP 98.6; O2SAT 95
--- NOTE | 2022-04-28 12:59 | XCELERA ---
[id number] [id number]
--- NOTE | 2022-04-28 14:06 | Electrocardiogram Report ---
Test Reason : Blood Pressure : / mmHG Vent. Rate : 081 BPM Atrial Rate : 081 BPM P-R Int : 136 ms QRS Dur : 086 ms QT Int : 372 ms P-R-T Axes : 047 -06 014 degrees QTc Int : 432 ms Normal sinus rhythm Nonspecific ST and T wave abnormality Abnormal ECG When compared with ECG of 03-MAR-2022 16:46, No significant change was found Confirmed by Neel Galdamez ([id number]) on 04/28/2022 2:05:49 PM Referred By: REFERRED SELF Confirmed By:Rolo Galdamez
--- NOTE | 2022-04-28 14:31 | Discharge Summary ---
Date of Service April 28, 2022 Admission HPI Per Admitting Provider Rose Saravia is a 62yo female with history of HTN, GERD and dilated ascending aorta presenting with chest pain. 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 She lifted something heavy on 04/23/22 after which she developed some substernal chest discomfort. Patient had off work on 04/24 and 04/25 and her pain improved. She worked again on 04/26 and 04/27 and had recurrence of the chest pain. Her pain is substernal with radiation into her back. She notes it is largely positional. She reports some increased dyspnea on exertion over the last week as well. Her pain radiates down her arms bilaterally. Patient had some nausea today as well. Patient follows with Cardiology for her dilated ascending aorta which has been stable. She was noted to have coronary artery calcifications and is presently taking statin and ASA. No known history of CAD or MO. No prior MO. She has had stress testing in the past. In the ER she is afebrile, mildly hypertensive, otherwise HD stable. Presently complaining of muscle soreness, still with some chest discomort precipitated by movement. ER Course: ASA Admission Exam Per Admitting Provider General: patient resting comfortably, NAD, non-toxic in appearance, AA&O x 4 Skin: warm, dry, intact, no rashes or lesions HEENT: NC/AT, PERRL, EOMI, anicteric sclera, conjunctiva without injection, external ear normal to inspection and nontender, nares patent, moist mucus membranes, dentition intact, no oropharyngeal lesions, neck supple, trachea midline, no LAD, no thyromegaly, no JVD Heart: +S1/S2, regular, no m/r/g, +reproducible chest wall pain Lungs: equal air entry bilaterally, no rales/rhonchi/wheezes Abd: +BS, soft, NT/ND, no masses/organomegaly/ascites Ext: warm, 2+ pulses in UE/LE bilaterally, no clubbing/cyanosis or edema Neuro: nonfocal, patient AA&O x 4, speech intact, no facial droop, moving all extremities on command with equal strength 5/5 Principal Diagnosis chest pain Discharge Exam General: patient resting comfortably, NAD, non-toxic in appearance, AA&O x 4 Skin: warm, dry, intact, no rashes or lesions HEENT: NC/AT, PERRL, EOMI, anicteric sclera, conjunctiva without injection, external ear normal to inspection, nares patent, moist mucus membranes, dentition intact, neck supple, trachea midline Heart: +S1/S2, regular, no m/r/g, +reproducible chest wall pain Lungs: CTAB no rales/rhonchi/wheezes Abd: soft, non-distended Neuro: nonfocal, patient alert and oriented speech intact, no facial droop, Discharge Data Allergies Allergy/AdvReac Type Severity Reaction Status Date / Time doxycycline AdvReac Intermediate Vomiting Verified 04/27/22 19:48 omeprazole AdvReac Intermediate Diarrhea Verified 04/27/22 19:48 Consultations 04/27/22 21:12 ED Decision to Admit Stat Ordered Studies Chest X-Ray 04/27/22 19:09 XR chest 1V portable CLINICAL HISTORY: Chest pain, nonspecific TECHNIQUE: Single frontal radiograph of the chest was obtained. Comparison: Comparison is made to chest radiograph 01/05/2022 FINDINGS: No lines and tubes are seen. Cardiomegaly is noted. The aortic arch is calcified. The lungs are clear. No evidence of pleural effusion or pneumothorax. IMPRESSION: No acute chest disease. ACT 112: Negative or not required by law. Electronically signed by: Sylvester Thurman M.D. 04/28/2022 7:28 AM Chest CTA 04/27/22 19:22 Exam(s): CTA CHEST W/WO Contrast EXAM: CT Angiography Chest Without and With Intravenous Contrast CLINICAL HISTORY: Reason for exam: mid sternal cp. TECHNIQUE: Axial computed tomographic angiography images of the chest without and with intravenous contrast. CTDI is 6.7 mGy and DLP is 228.45 mGy-cm. Automated exposure control was utilized for the study. A dose lowering technique was utilized adhering to the principles of ALARA. MIP reconstructed images were created and reviewed. CONTRAST: Contrast must be dictated COMPARISON: 03/03/2022. FINDINGS: Pulmonary arteries: Unremarkable. No pulmonary embolism. Normal enhancement of the pulmonary arteries. Aorta: Atherosclerotic disease of aorta with tortuosity. No aneurysm or dissection. Lungs: Trace posterior dependent and lower lobe atelectasis, otherwise normal lung parenchyma. No mass. Pleural space: Unremarkable. No pleural effusion or pneumothorax. Heart: Unremarkable. No significant pericardial effusion. No evidence of RV dysfunction. Normal cardiac size. Mediastinum: Large hiatal hernia. Thyroid: Nonvisualized left thyroid lobe suggestive of previous partial thyroidectomy. Bones/joints: Degenerative disease of the spine. No acute fracture or subluxation. Soft tissues: Unremarkable. Lymph nodes: Unremarkable. No enlarged lymph nodes. Gallbladder and bile ducts: Status post cholecystectomy with no biliary distention. Remainder of the visualized upper abdominal viscera unremarkable. IMPRESSION: 1. No pulmonary embolus or aortic dissection. 2. Mild posterior dependent atelectasis, otherwise no acute cardiopulmonary disease. 3. Large hiatal hernia. Electronically signed by: Tessie Galarza MD 04/27/22 21:31 PM 04/27/22 19:22 CT angio chest dissec wo/w con Stat Hospital Course (1) Chest pain: 62 y/o female with history of stable ascending aortic dilation, coronary artery calcification, HTN and RA presenting with 5 days of substernal chest discomfort with radiation into the back and bilateral arms HDS with reproducible CP and no ST elevations on EKG now stable for discharge #Stable ascending aortic dilation #Chest Pain Troponin is unremarkable. EKG with non-specific changes Chest pain is largely reproducible. Suspect musculoskeletal most likely source. However, given known coronary calcifications and history of HTN patient was admitted for obs. Per cards no need for dobutamine ECHO as this is likely MSK in nature. Would rec PCP f/u for possible OMT vs chiropractic manipulation. Could also consider massage therapy and/or PT. Continue home meds. Tylenol for pain. #HTN BP mildly elevated at presentation. On Telmisartan and amlodipine. Continue to monitor #RA On Enbrel outpatient. Continue #GERD Chronic. Stable. Continue Protonix 40mg po daily F/E/N - Heplock. Electroltyes WNL. Ppx - Low risk for DVT Code - Ful per discussion with patient Dispo - d/c home (2) Hypertension: (3) Rheumatoid arthritis: (4) Acid reflux disease: Total Time Total Time Spent Total Time Spent (In Minutes): 30 mins Total Time Includes: Examination of the Patient, Discharge Planning and Other Discharge Plan Discharge Items Patient Disposition: Home - Self-Care Reason For Visit: CHEST PAIN Discharge Diagnosis: chest pain Activity: Per Instructions section Non-emergency contact: Primary Care Provider and Mill Controller Call non-emergency contact if: your pain is concerning for you and your temperature is above 101.5 Follow-up/Referrals: Amairani Simmons DO [Primary Care Provider] - 05/10/22 9:20 am Diet: Heart Healthy Addtl Attending Provider Instructions: You were admitted to the hospital for observation as you were having chest pain. You were evaluated with lab work and your heart was monitored. There were no signs of damage to your heart. Upon a discussion with cardiology we decided that a stress echocardiogram was not necessary at this time as it did not appear cardiac in nature. This was likely musculoskeletal chest pain. Would recommend following up with your primary care provider to discuss possible OMT or chiropractic manipulation. A discharge summary will be sent to your primary care physician to ensure continuity of care. Please bring this discharge summary with you to your next office appointment so that your provider can review it at that time. Follow-up appointments: We have requested a follow-up appointment with your primary care physician within one week of discharge. Please call their office if you do not hear from them. Keep all your follow-up appointments as already scheduled. If you cannot make an appointment, notify your provider. Medications: Your medication list has been reviewed and reconciled upon discharge to ensure accuracy and continuity of care. An updated list of all your medications is included with your hospital discharge paperwork. Please review this list closely, and make note of any changes. Take your medications as instructed; do not skip a dose of your medicines. Make sure all of your doctors know every medicine you are taking (including thfw-cny-cfunulv medicines, vitamins, and supplements). Call your primary care provider before taking any new medicines (including over- the- counter medicines, vitamins, and supplements), because some of these may interact with your current medications, or may make your symptoms worse. Tell your primary care provider if you cannot afford your medications. CONTACT YOUR PRIMARY CARE PROVIDER if you experience any of the following: worsening symptoms chest pain or shortness of breath Difficulty following your treatment plan, or difficulty taking medications CALL 911 OR GO TO THE EMERGENCY DEPARTMENT if you experience any of the following: Sudden, severe abdominal pain or nausea/vomiting Severe chest pain, or chest pain that radiates (moves) to your jaw or arm Sudden, severe shortness of breath or difficulty breathing Thank you for allowing us to participate in your care Pending Studies at Discharge: No Stand-Alone Forms: [employer], Work/School Release, Smoking Cessation Medications and DC Order Prescriptions: Continued hydroxyzine pamoate [Vistaril] 25 mg capsule 25 mg PO TID PRN (Reason: anxiety) Qty: 30 0RF cholecalciferol (vitamin D3) 1,250 mcg (50,000 unit) capsule 50,000 unit PO UD Qty: 9 3RF Rx Instructions: 50,000 units weekly on Monday for 3 weeks then do not take for 1 week, then repeat sequence fluticasone propionate [Flonase Allergy Relief] 50 mcg/actuation spray,suspension 2 spray intranasal DAILY Qty: 48 1RF Rx Instructions: administer into each nostril albuterol sulfate 90 mcg/actuation HFA aerosol inhaler 2 puff Inhalation .COMPLEX PRN (Reason: Shortness Of Breath Or Wheezing) Qty: 18 3RF Rx Instructions: 1-2 puffs inhalation every 4-6 hrs PRN; atorvastatin 40 mg tablet 40 mg PO HS Qty: 90 3RF pantoprazole 40 mg tablet,delayed release (DR/EC) 40 mg PO DAILY Qty: 90 3RF aspirin 81 mg tablet,delayed release (DR/EC) 81 mg PO QAM Qty: 90 1RF potassium chloride 20 mEq tablet,ER particles/crystals 20 meq PO QAM Qty: 90 1RF amlodipine 5 mg tablet 5 mg PO QAM Qty: 90 1RF telmisartan 20 mg tablet 20 mg PO QAM Qty: 90 1RF Enbrel Mini 50 mg/mL (1 mL) cartridge 50 mg SUBCUT WK Rx Instructions: ADMINISTER EVERY MONDAY EVENINGS Discharge Orders: Discharge Order (Routine); Ordered 04/28/22 Ordered By: Laura Holland/Other Patient Handouts: Stress Manage for Heart Health, Progressive Relaxation, Stress Relief: Relaxation Admission Data Admit Date/Time: 04/27/22 21:39 Attending Provider: Magda Gerber Admit Provider: Shira Hendrickson Primary Care Provider: Amairani Simmons Other Providers: Shira Hendrickson Other Interventions: Discharge Summary Assessment (RN) Last Done: 04/28/22 13:08 Supervising Physician Co-Signing Physician Notes 62-year-old female on admission for chest pain. Chest pain presented as atypical, patient endorses left-sided that radiates into her back. EKG was normal sinus rhythm with a nonspecific ST and T wave abnormality, no change when compared to last study. Troponins x2 are negative. Echocardiogram performed and revealed normal left and right ventricular systolic function and no significant valvular disease, EF 60 to 65%. Patient did have significant hypertonicity of upper back and endorsed pain in her thoracic area. She works at the [employer] and states that she does a lot of repetitive lifting, has had episodes like this in the past. We discussed at length that this may be related to musculoskeletal dysfunction, discussed consideration of osteopathic manipulative therapy or chiropractic medicine. Also discussed consideration of physical therapy or massage therapy for her chronic back pain. Discussed symptoms concerning for ACS and reasons to seek medical attention, patient and family understanding. I personally examined the patient and verified all scott points of history and exam, discussed case, and agree with decision making and plan documented by Dr. Merchant. Resident Activity Tracking Resident Involvement: Resident Care Provided Care Provided: Adult Hospital Medicine
[2022-04-28 15:28] VITALS: PULSE 74
[2022-04-28] MEDS ORDERED: ATORVASTATIN 40 MG TAB PO SCH (21:00)
== END 2022-04-28 16:41 | disposition home or self-care (01) ==
LOC: 4W 19:01 → ED 19:01 → SUATTDRO 21:39 → 4W 22:29